=== PATIENT | male | born 1970 | race Caucasian/White ===

== ENCOUNTER 2019-07-15 07:55 | Outpatient (CLI) | payer OTHER, SELFPAY ==
--- NOTE | ~2019-07-15 | US_ITS ---
EXAMINATION: US scrotum doppler DATE: 07/15/2019 08:39 INDICATION: Hydrocele TECHNIQUE: Testicular sonogram utilizing grayscale and Doppler COMPARISON: None. FINDINGS: The right testis measures 3.8 x 3.3 x 3.0 cm. The left testis measures 4.2 x 3.3 x 2.6 cm. Symmetric normal grayscale appearance to both testes. There is normal vascular flow to both testes. The right e pididymis is normal with normal vascular flow. 1.9 x 1.2 x 1.2 cm anechoic cyst at the left epididymi s. The left epididymis is otherwise normal with normal vascular flow. Moderate-sized right hydrocele. There is no varicocele or left hydrocele. IMPRESSION: 1. Moderate right hydrocele. Reviewed, dictated and finalized at location A. PIECE ASSEMBLER
== END 2019-07-15 07:56 | disposition home or self-care (01) ==
PROVIDERS: PCP Family Medicine; Visit Provider Urology
DX: N43.3 Hydrocele, unspecified (principal)
CPT/HCPCS: 76870; 93976

== ENCOUNTER 2019-09-06 14:58 | Outpatient (CLI) | payer OTHER, SELFPAY ==
--- NOTE | 2019-09-06 15:16 | ECG_ITS ---
Measurements Intervals [place] Rate: 59 P: 33 DC: 183 QRS: 11 QRSD: 96 T: 5 QT: 433 QTc: 430 Interpretive Statements SINUS BRADYCARDIA ST ELEVATION IN ANTEROLAT/LAT LEADS- PROBABLY EARLY REPOLARIZATION BORDERLINE ECG Electronically Signed On 09-06-2019 17:02:38 CDT by Franki Rodriguez D.O.
[2019-09-06 15:26] LABS: Blood Urea Nitrogen 14 mg/dL (9-20); Calcium 9.5 mg/dL (8.4-10.2); Carbon Dioxide 32 mmol/L (22-30); Chloride 101 mmol/L (98-107); Estimated Glomerular Filt Rate > 60; Glucose 112 mg/dL (75-110); Potassium 4.1 mmol/L (3.4-5.0); Sodium 137 mmol/L (137-145)
== END 2019-09-06 14:59 | disposition home or self-care (01) ==
PROVIDERS: PCP Family Medicine; Visit Provider Anesthesiology
DX: I10 Essential (primary) hypertension (principal); R94.31 Abnormal electrocardiogram [ECG] [EKG]
CPT/HCPCS: 36415; 80048; 93005

== ENCOUNTER 2022-01-05 00:47 | Day surgery (SDC) | payer OTHER, SELFPAY ==
[2021-12-17 14:06] VITALS: BMI 35.0
--- NOTE | 2022-01-02 09:57 | SUR.PREOP ---
0957 spoke with the patient and patient is taking Sutab.
[2022-01-05 07:46] VITALS: BMI 35.4
[2022-01-05 07:49] VITALS: BP 139/78; PULSE 59; RESP 19; TEMP 35.9; O2SAT 99
[2022-01-05] MEDS: LACTATED RINGERS 1,000 ML 150 ML IV CONT (08:00)
--- NOTE | 2022-01-05 08:44 | PM.HPGS ---
History of Present Illness History of Present Illness Consent: Risks, benefits, and alternatives have been discussed and questions answered. Patient agrees to proceed with procedure. Chief complaint: neoplasm screening Narrative: Robin Rosales is a 51 year old male here for first screening colonoscopy Review of Systems Constitutional: Constitutional: Denies headache(s) and Denies weakness Eyes: Eyes: Denies blurry vision ENT: Reports Normal hearing present, Denies headache(s) and Denies neck pain Cardiovascular: Cardiovascular: Denies chest pain and Denies dyspnea Respiratory: Respiratory: Denies dyspnea Gastrointestinal: Gastrointestinal: Reports no additional gastrointestinal complaints Genitourinary: Genitourinary: Denies dysuria Musculoskeletal: Musculoskeletal: Denies neck pain Integumentary/Breasts: Skin/Breast: Denies dry skin Neurologic: Reports Normal hearing present, Denies headache(s) and Denies weakness Psychiatric: Psychiatric: Denies anxiety Endocrine: Endocrine: Denies change in body appearance Hematologic/Lymphatic: Hematologic/Lymphatic: Denies easy bleeding Allergic/Immunologic: Allergic/Immunologic: Denies urticaria PMF Past Medical History Medical History (Updated 01/05/22 @ 08:45 by Vasquez Bustos MD) Colon cancer screening Hyperlipidemia, acquired Hypertension Rectal mass Surgical History Surgical History S/P repair of hydrocele Family History Family History Mother Family history of malignant neoplasm of breast in first degree relative, Onset Age: 72 Father Family history of heart disease in male family member before age 55, Onset Age: 52 Other Hypertension Social History Social History Smoking packs per day: 1 Smoking cigarettes per day: 20.0 Years smoked: 4 Smoking pack-years: 4.00 Smoking status: Never smoker Alcohol intake: current Drinks per week: 12 Substance use: never Substance use type: does not use Living arrangements: with family Spiritual care concerns: No Meds Home Medications and Allergies Home Medications Medication Instructions Recorded Confirmed Type aspirin 81 mg tablet,delayed 81 mg PO DAILY 05/10/19 12/17/21 History release sildenafil 100 mg tablet (Viagra) 100 mg PO DAILY PRN sexual 04/19/20 12/17/21 Rx activity #30 tabs diclofenac sodium 1 % topical gel 2 g topical BID PRN pain #100 grams 04/18/21 12/17/21 Rx (Voltaren Arthritis Pain) ibuprofen 200 mg tablet 400 mg PO DAILY PRN Pain 04/18/21 12/17/21 History sodium sul 1.479 gram-potas ch See Rx Instructions PO .COMPLEX 11/07/21 12/17/21 Rx 0.188 gram-magnes sul 0.225 gram #24 tabs tablet (Sutab) bisoprolol 10 1 tablet PO DAILY #90 tabs 12/04/21 12/17/21 Rx mg-hydrochlorothiazide 6.25 mg tablet lovastatin 10 mg tablet 10 mg PO DAILY #90 tabs 12/04/21 12/17/21 Rx Allergies Allergy/AdvReac Type Severity Reaction Status Date / Time codeine Allergy Unknown CAUSES RASH Verified 10/24/21 08:09 Vital Signs Vital Signs - 24 hr 01/05/22 07:49 Temperature 96.7 F L Pulse Rate 59 L Respiratory Rate 19 Blood Pressure 139/78 Pulse Oximetry 99 Oxygen Delivery Room Air Exam Const: General: comfortable and no acute distress HENMT: General nose exam: Normal nares present Eyes: General: appearance normal, both eyes and all related structures Neck: Neck: no JVD Resp: Auscultation: clear to auscultation bilaterally Cardio: Rate: regular rate Rhythm: regular rhythm GI: Inspection: non-distended GI Palp: Yes Soft to palpation Skin: General skin exam: normal color Neuro: General: gait normal Speech: normal speech Extrem: General: normal to inspection Psych: Mental Status: mental status grossly normal Assessment and
--- NOTE | 2022-01-05 08:45 | WPDANESEPPF ---
Anes - Initial Pre Proc Eval Procedure: Operation Date: 01/05/22 09:00 Proposed Procedures p Screening Colonoscopy - Vasquez Bustos MD Date/Time: 01/05/22 08:45 Surgeon: Vasquez Bustos MD Pre Op Diagnosis: neoplasm screening Patient Data Age: 51 Gender: M Height: 1.8 m Weight: 115.2 kg Last Vital Signs Temp 96.7 F L 01/05/22 07:49 Pulse 59 L 01/05/22 07:49 Resp 19 01/05/22 07:49 BP 139/78 01/05/22 07:49 Pulse Ox 99 01/05/22 07:49 O2 Del Method Room Air 01/05/22 07:49 Allergies Allergy/AdvReac Type Severity Reaction Status Date / Time codeine Allergy Unknown CAUSES RASH Verified 10/24/21 08:09 Home Medications Medication Instructions Recorded Confirmed Type aspirin 81 mg tablet,delayed 81 mg PO DAILY 05/10/19 12/17/21 History release sildenafil 100 mg tablet (Viagra) 100 mg PO DAILY PRN sexual 04/19/20 12/17/21 Rx activity #30 tabs diclofenac sodium 1 % topical gel 2 g topical BID PRN pain #100 grams 04/18/21 12/17/21 Rx (Voltaren Arthritis Pain) ibuprofen 200 mg tablet 400 mg PO DAILY PRN Pain 04/18/21 12/17/21 History sodium sul 1.479 gram-potas ch See Rx Instructions PO .COMPLEX 11/07/21 12/17/21 Rx 0.188 gram-magnes sul 0.225 gram #24 tabs tablet (Sutab) bisoprolol 10 1 tablet PO DAILY #90 tabs 12/04/21 12/17/21 Rx mg-hydrochlorothiazide 6.25 mg tablet lovastatin 10 mg tablet 10 mg PO DAILY #90 tabs 12/04/21 12/17/21 Rx Patient hx anesthesia problems: none Family hx anesthesia problems: none Results Review: All pre-operative results and documents have been reviewed as part of the pre-operative evaluation. [facility] Past Medical History Medical History (Updated 01/05/22 @ 08:45 by Vasquez Bustos MD) Colon cancer screening Hyperlipidemia, acquired Hypertension Rectal mass Surgical History Surgical History S/P repair of hydrocele Family History Family History Mother Family history of malignant neoplasm of breast in first degree relative, Onset Age: 72 Father Family history of heart disease in male family member before age 55, Onset Age: 52 Other Hypertension Social History Social History Smoking packs per day: 1 Smoking cigarettes per day: 20.0 Years smoked: 4 Smoking pack-years: 4.00 Smoking status: Never smoker Alcohol intake: current Drinks per week: 12 Substance use: never Substance use type: does not use Living arrangements: with family Spiritual care concerns: No Anes - Eval Final PreProcedure Day of Procedure 01/05/22 08:45 Patient weight: obese Heart: regular rate and rhythm Lungs: clear to auscultation Airway: Mallampati scale class II Neurological: alert and oriented Last oral intake: >/= 8 hours ASA classification: II Emergent: no Anesthetic plan: proceed Anesthesia type and monitoring: general GIVS and standard monitoring Results Review: All pre-operative results and documents have been reviewed as part of the pre-operative evaluation. Informed Consent: The patient's anesthetic plan and its attendant risks and benefits were discussed with the patient/family/POA. Questions were solicited and answers provided to the satisfaction of the patient/family/POA.
[2022-01-05 09:09] VITALS: BP 100/58; PULSE 60; RESP 20; O2SAT 99
[2022-01-05 09:19] VITALS: BP 121/82; PULSE 60; RESP 20; O2SAT 97
[2022-01-05 09:29] VITALS: BP 128/80; PULSE 51; RESP 20; O2SAT 98
== END 2022-01-05 09:45 | disposition home or self-care (01) ==
PROVIDERS: PCP Family Medicine; Visit Provider Internal Medicine Gastroenterology
PROC: 0DJD8ZZ Inspection of Lower Intestinal Tract, Via Natural or Artificial Opening Endoscopic (ICD-10-PCS; CPT 45378; principal; 2022-01-05 09:00)
DX: Z12.11 Encounter for screening for malignant neoplasm of colon (principal); K57.30 Diverticulosis of large intestine without perforation or abscess without bleeding; K64.8 Other hemorrhoids; K62.89 Other specified diseases of anus and rectum; Z79.82 Long term (current) use of aspirin; E78.5 Hyperlipidemia, unspecified; I10 Essential (primary) hypertension; E66.9 Obesity, unspecified; Z68.35 Body mass index [BMI] 35.0-35.9, adult
CPT/HCPCS: 45378; J2704; J7120

== ENCOUNTER 2023-11-19 08:32 | Outpatient (CLI) | payer OTHER, SELFPAY ==
[2023-11-19 13:22] LABS: Hemoglobin 14.4 g/dL (14.0-18.0); Mean Corpuscular HGB Conc 32.7 g/dl (32-36); Mean Corpuscular Hemoglobin 28.8 pg (26-34); Mean Platelet Volume 10.9 fl (7.4-10.4); Platelet Count Result 273 k/mm3 (150-375); Red Cell Distribution Width 13.5 % (11.5-14.5); White Blood Count 6.4 K/mm3 (4.5-10.0)
[2023-11-19 13:31] LABS: Alanine Aminotransferase 16 U/L (6-50); Albumin Level 4.9 g/dL (3.5-5.1); Alkaline Phosphatase 59 U/L (38-126); Anion Gap 11 mmol/L (4-12); Aspartate Amino Transferase 40 U/L (17-59); Bilirubin,Total 1.3 mg/dL (0.2-1.3); Blood Urea Nitrogen 18 mg/dL (9-20); Calcium 9.3 mg/dL (8.4-10.2); Carbon Dioxide 28 mmol/L (22-30); Chloride 101 mmol/L (98-107); Cholesterol 189 mg/dL (0-200); Estimated Glomerular Filt Rate > 60; Glucose 94 mg/dL (65-110); HDL Direct 47 mg/dL; Potassium 4.2 mmol/L (3.4-5.0); Sodium 140 mmol/L (137-145); Triglycerides 175 mg/dL (<150)
[2023-11-19 13:42] LABS: LDL Cholesterol Direct 109 mg/dL
[2023-11-19 14:36] LABS: Free T4 Free Thyroxine 0.79 ng/mL (0.78-2.19)
[2023-11-19 14:37] LABS: Hemoglobin A1C 5.3 % (<5.7)
[2023-11-21 03:29] LABS: Triiodothyronine T3 Free 2.9 pg/mL (2.3-4.2)
== END 2023-11-19 08:33 | disposition home or self-care (01) ==
LOC: ANHGOSHLAB 08:33
PROVIDERS: Nurse Practitioner Family; PCP Family Medicine; Visit Provider Nurse Practitioner Family
DX: Z00.00 Encounter for general adult medical examination without abnormal findings (principal); E55.9 Vitamin D deficiency, unspecified; E78.5 Hyperlipidemia, unspecified; I10 Essential (primary) hypertension; M25.50 Pain in unspecified joint; N40.1 Benign prostatic hyperplasia with lower urinary tract symptoms; N52.9 Male erectile dysfunction, unspecified; R35.1 Nocturia; R79.89 Other specified abnormal findings of blood chemistry; R73.03 Prediabetes; E53.8 Deficiency of other specified B group vitamins; Z12.5 Encounter for screening for malignant neoplasm of prostate; Z13.29 Encounter for screening for other suspected endocrine disorder
CPT/HCPCS: 36415; 80053; 80061; 82607; 83036; 84153; 84439; 84443; 84481; 85027; G0103

== ENCOUNTER 2024-05-30 09:32 | Outpatient (CLI) | payer OTHER, SELFPAY ==
[2024-05-30 14:29] LABS: Basophils Absolute Auto 0.1 K/mm3 (0.0-0.1); Basophils Percent Auto 1.4 % (0.2-1.2); Eosinophils Absolute Auto 0.2 K/mm3 (0-0.3); Eosinophils Percent Auto 3.3 % (0-4.4); Hematocrit 44.4 % (42.0-52.0); Hemoglobin 14.9 g/dL (14.0-18.0); Immature Granulocyte Absolute 0.02 K/mm3 (0.00-0.031); Immature Granulocyte Percent A 0.3 % (0-0.5); Lymphocytes Absolute Auto 1.85 K/mm3 (0.9-3.2); Lymphocytes Percent Auto 26.7 % (18.3-44.2); Mean Corpuscular HGB Conc 33.6 g/dl (32-36); Mean Corpuscular Hemoglobin 30.3 pg (26-34); Mean Corpuscular Volume 90.4 fl (80-100); Mean Platelet Volume 10.4 fl (7.4-10.4); Monocytes Absolute Auto 0.9 K/mm3 (0.1-0.6); Monocytes Percent Auto 12.4 % (2.6-8.5); Neutrophils Absolute Auto 3.9 K/mm3 (1.3-6.7); Neutrophils Percent Auto 55.9 % (45.5-73.1); Platelet Count Result 251 k/mm3 (150-375); Red Blood Count 4.91 M/mm3 (4.6-6.20); Red Cell Distribution Width 13.3 % (11.5-14.5); White Blood Count 6.9 K/mm3 (4.5-10.0)
[2024-05-30 14:34] LABS: Alanine Aminotransferase 35 U/L (6-50); Albumin Level 4.5 g/dL (3.5-5.1); Alkaline Phosphatase 57 U/L (38-126); Anion Gap 3 mmol/L (4-12); Aspartate Amino Transferase 41 U/L (17-59); Bilirubin,Total 0.8 mg/dL (0.2-1.3); Blood Urea Nitrogen 17 mg/dL (9-20); Calcium 9.5 mg/dL (8.4-10.2); Carbon Dioxide 31 mmol/L (22-30); Chloride 104 mmol/L (98-107); Cholesterol 211 mg/dL (0-200); Estimated Glomerular Filt Rate > 60; Glucose 99 mg/dL (65-110); HDL Direct 55 mg/dL; Potassium 4.7 mmol/L (3.4-5.0); Sodium 138 mmol/L (137-145); Triglycerides 199 mg/dL (<150)
[2024-05-30 14:46] LABS: LDL Cholesterol Direct 112 mg/dL
[2024-05-30 14:59] LABS: Vitamin D 25 Hydroxy 28.2 ng/mL
[2024-05-30 15:37] LABS: Free T4 Free Thyroxine Reflex 0.75 ng/dL (0.78-2.19)
--- OUTSIDE RECORDS SUMMARY | 2024-06-06 16:45 | XMS_ITS | Encounter Summary ---
Author Organization [facility] Address [address] [place] [address] Care Team Providers Care Dominatrix Name Role Phone Lacie Arredondo MD Primary Care Provider [phone] Reason for Visit * Reason Onset Date Comments Medication Issue 01/05/2020 Encounter Details Date Type Department Care Team (Late st Contact Info) Description 01/05/2020 Telephone [facility] [address] [id number] Lacie Arredondo MD [address] [place] [phone] Medication Issue Social History Tobacco Use Types Packs/Day Years Used Date Smoking Tobacco: Never Smokeless Tobacco: Never Alcohol Use Standard Drinks/Week Comments Yes 0 (1 standard drink = 0.6 oz pur e alcohol) Sex and Gender Information Value Date Recorded Sex Assigned at Not on file Gender Identity Not on file Sexual Orientation Not on file COVID-19 Exposure Response Date Recorded In the last month, have you been in contact with someone who was confirmed or suspected to have Coronavirus / COVID-19? No / Unsure 01/05/2020 10:36 AM CDT documented as of this encounter Miscellaneous Notes * Telephone Encounter - Yoel Reardon APRN-CNP - 01/05/2020 3:21 PM CDT Patient states that he went ahead and got the RX. He states that his pharmacy wasn't a preferred pharmacy so it was more expensive, but he went ahead and got it * Telephone Encounter - Linnea Galvan - 01/05/2020 1:21 PM CDT Who is calling? Self What is the reason for call? Robin who was seen today at the [facility] date 01/05/2020. Patient would like a medication that fits his insurance. patient was seen for lear pain earlier today Expected Response from the Clinic? Please call Robin at : [phone] documented in this encounter Plan of Treatment Not on file documented as of this encounter Visit Diagnoses Not on filedocumented in this encounter Care Teams Dominatrix Relationship Specialty Start Date End Date Lacie Arredondo MD PCP - General Family Medicine 05/13/16 documented as of this encounter
--- OUTSIDE RECORDS SUMMARY | 2024-06-06 16:45 | XMS_ITS | Patient Health Summary ---
Author Organization [facility] Address [address] [place] [address] Care Team Providers Care Forest Patrolman Name Role Phone Lacie Arredondo MD Primary Care Provider [phone] [facility] from [facility],non-owned Affiliates and Associated Physician Practices is amultiple site organization consisting of ambulatory clinics and hospital sitesin [place], [place], [place] and [place]. This disclosure is being madepursuant to the Care Everywhere program and may not contain all information available regarding this patient. Last updated 18.[facility] Allergies * Codeine(Other) Medications * Be aware that medications may not be up to date on this document. Alwaysverify current medications with the patient. * BISOPROLOL FUMARATE PO * LOVASTATIN PO Immunizations * FLU VACCINE QUAD IIV4 PF ID(Given 05/13/2016) * INFLUENZA VACCINE, HIGH-DOSE, QUADR. (FLUZONE HIGH-DOSE QUADRIVALENT; 65Y+), 0.7 ML (HD-IIV4)(Given 02/09/2020) * INFLUENZA VACCINE, QUADR. (FLUZONE; FLULAVAL; FLUARIX; AFLURIA QUADRIVALENT; 6MO+), 0.5 ML (IIV4)(Given 04/22/2017) Social History Tobacco Use Types Packs/Day Years Used Date Smoking Tobacco: Never Smokeless Tobacco: Never Alcohol Use Standard Drinks/Week Comments Yes 0 (1 standard drink = 0.6 oz pur e alcohol) Sex and Gender Information Value Date Recorded Sex Assigned at Not on file Gender Identity Not on file Sexual Orientation Not on file Last Filed Vital Signs Vital Sign Reading Time Taken Comments Blood Pressure 126/82 01/05/2020 10:49 AM CDT Pulse 89 01/05/2020 10:49 AM CDT Temperature 36.7 ??C (98 ??F) 01/05/2020 10:49 AM CDT Respiratory Rate 16 01/05/2020 10:49 AM CDT Oxygen Saturation 97% 01/05/2020 10:49 AM CDT Inhaled Oxygen Concentration - - Weight 108.9 kg (240 lb) 01/05/2020 10:49 AM CDT Height 182.9 cm (6') 01/05/2020 10:49 AM CDT Body Mass Index 32.55 01/05/2020 10:49 AM CDT Care Teams Forest Patrolman Relationship Specialty Start Date End Date Lacie Arredondo MD PCP - General Family Medicine 05/13/16
--- OUTSIDE RECORDS SUMMARY | 2024-06-06 16:45 | XMS_ITS | Encounter Summary ---
Author Organization [facility] Address [facility] [place] [address] Care Team Providers Care Cloth Finisher Name Role Phone Lacie Arredondo MD Primary Care Provider [phone] Reason for Visit * Reason Comments Imm Inj Encounter Details Date Type Department Care Team (Late st Contact Info) Description 02/09/2020 12:40 PM CDT Office Visit [facility] AT [address] [phone] Provider, [facility] Need for influenza vaccination (Primary Dx) Social History Tobacco Use Types Packs/Day Years [...] have Coronavirus / COVID-19? No / Unsure 02/09/2020 12:31 PM CDT documented as of this encounter Progress Notes * Steph Espinoza - 02/09/2020 12:33 PM CDT Robin Rosales is a .49 year old .male patient, here for: Chief Complaint Patient presents with ??? Imm Inj No orders of the defined types were placed in this encounter. Patient tolerated without difficulty. Hemostasis achieved, and sterile band-aid placed. Immunization questionnaire scanned into the medical record. -Advised patient to keep a record of all vaccinations. (may use [facility] MyChart if desired) -May take Tylenol (acetaminophen) as needed for aches/pains per package directions. -If you develop redness, swelling at the injection site; it should resolve on its own within 5-7 days of injection. Use warm compresses as needed to the site. -Return to clinic for an evaluation if needed. -Current CDC VIS Handout given Follow-up with your Lacie Arredondo MD as directed. If no PCP listed, referral offered. .Steph Espinoza 02/09/2020 12:33 PM documented in this encounter Plan of Treatment Not on file documented as of this encounter Visit Diagnoses Diagnosis Need for influenza vaccination- Primary Need for prophylactic vaccination and inoculation against influenza documented in this encounter Care Teams Cloth Finisher Relationship Specialty Start Date End Date Lacie Arredondo MD PCP - General Family Medicine 05/13/16 documented as of this encounter
--- OUTSIDE RECORDS SUMMARY | 2024-06-06 16:45 | XMS_ITS | Encounter Summary ---
Author Organization [facility] Address [facility] [place] [address] Care Team Providers Care Vending Machine Collector Name Role Phone Lacie Arredondo MD Primary Care Provider [phone] Encounter Details Date Type Department Care Team (Latest Contact Info) Description 02/09/2020 Travel Social History Tobacco Use Types Packs/Day Years [...] PM CDT documented as of this encounter Plan of Treatment Not on file documented as of this encounter Visit Diagnoses Not on filedocumented in this encounter Care Teams Vending Machine Collector Relationship Specialty Start Date End Date Lacie Arredondo MD PCP - General Family Medicine 05/13/16 documented as of this encounter
--- OUTSIDE RECORDS SUMMARY | 2024-06-06 16:45 | XMS_ITS | Encounter Summary ---
Author Organization [facility] Address [facility] [place] [address] Care Team Providers Care Frozen Food Selector Name Role Phone Lacie Arredondo MD Primary Care Provider [phone] Encounter Details Date Type Department Care Team (Latest Contact Info) Description 01/05/2020 Travel Social History Tobacco Use Types Packs/Day [...] AM CDT documented as of this encounter Plan of Treatment Not on file documented as of this encounter Visit Diagnoses Not on filedocumented in this encounter Care Teams Frozen Food Selector Relationship Specialty Start Date End Date Lacie Arredondo MD PCP - General Family Medicine 05/13/16 documented as of this encounter
--- OUTSIDE RECORDS SUMMARY | 2024-06-06 16:45 | XMS_ITS | Referral Summary ---
Author Organization [facility] Address [address] [place] [address] Care Team Providers Care Balance Wheel Screw Hole Tapper Name Role Phone Lacie Arredondo MD Primary Care Provider [phone] Source Comments [facility],non-owned Affiliates and Associated Physician Practices is amultiple site organization consisting of ambulatory clinics and hospital sitesin [place], [place], [place] and [place]. This disclosure is being madepursuant to the Care Everywhere program and may not contain all information available regarding this patient. Last updated 18.[facility] [place] Allergies Active Allergy Reactions Criticality Noted Date Comments Codeine Other 09/29/2019 Intolerance Medications * Be aware that medications may not be up to date on this document. Alwaysverify current medications with the patient. Medication Sig Dispensed Refills Start Date End Date Status BISOPROLOL FUMARATE PO Ac tive LOVASTATIN PO Active Immunizations Name Administration Dates Next Due FLU VACCINE QUAD IIV4 PF ID 05/13/2016 INFLUENZA VACCINE, HIGH-DOSE , QUADR. (FLUZONE HIGH-DOSE QUADRIVALENT; 65Y+), 0.7 ML (HD-IIV4) 02/09/2020 INFLUENZA VACCINE, QUADR. (F LUZONE; FLULAVAL; FLUARIX; AFLURIA QUADRIVALENT; 6MO+), 0.5 ML (IIV4) 04/22/2017 Social History Tobacco Use Types Packs/Day Years [...] Mass Index 32.55 01/05/2020 10:49 AM CDT Plan of Treatment Not on file Care Teams Balance Wheel Screw Hole Tapper Relationship Specialty Start Date End Date Lacie Arredondo MD PCP - General Family Medicine 05/13/16
--- OUTSIDE RECORDS SUMMARY | 2024-06-06 16:45 | XMS_ITS | Clinical Summary ---
Author Organization [facility] Address [address] [place] [address] Care Team Providers Care Alteration Worker Name Role Phone Lacie Arredondo MD Primary Care Provider [phone] Source Comments [facility],non-owned Affiliates and Associated Physician Practices is amultiple site organization consisting of ambulatory clinics and hospital sitesin [place], [place], [place] and [place]. This disclosure is being madepursuant to the Care Everywhere program and may not contain all information available regarding this patient. Last updated 18.[facility] Allergies Active Allergy Reactions Criticality Noted Date [...] 01/05/2020 10:49 AM CDT Plan of Treatment Health Maintenance Due Date Last Done Comments COLOGUARD (AGES 45-75) - COL ON CA SCREENING 1972 COLON MONITORING 1972 COLONOSCOPY - COLON CA SCREENING 1972 CT COLONOGRAPHY - COLON CA SCREENING 1972 Colorectal Cancer Screening 1972 FIT - COLON CA SCREENING 1972 FLEX SIG - COLON CA SCREENING 1972 HIV SCREENING 02/16/1987 HEPATITIS C SCREENING 02/12/1990 DTAP/TDAP/TD VACCINES (1 - Tdap) 02/16/1991 HEPATITIS B VACCINE (1 of 3 - 19+ 3-dose series) 02/16/1991 SCREENING FOR DIABETES 09/29/2019 ZOSTER VACCINE (1 of 2) 02/16/2022 DEPRESSION SCREENING 06/07/2023 COVID-19 VACCINE (1 - 2023-2 5 season) 2024 INFLUENZA VACCINE (#1) 2024 0, 04/22/2017, 05/13/2016 HIB VACCINE Aged Out No longer eligi ble based on patient's age to complete this topic HPV VACCINE Aged Out No longer eligi ble based on patient's age to complete this topic MENINGOCOCCAL VACCINE Aged Out No gisele jaky eligible based on patient's age to complete this topic PNEUMOCOCCAL VACCINE Aged Out No long er eligible based on patient's age to complete this topic Care Teams Alteration Worker Relationship Specialty Start Date End Date Lacie Arredondo MD PCP - General Family Medicine 05/13/16
--- OUTSIDE RECORDS SUMMARY | 2024-06-06 16:46 | XMS_ITS | Encounter Summary ---
Author Organization [facility] Address [address] [place] [address] Phone Care Team Providers Care Title Curator Name Role Phone Harjinder Goff MD Primary Care Provider Reason for Visit * Reason Comments Pain Encounter Details Date Type Department Care Team (Late st Contact Info) Description 09/18/2020 9:00 AM CDT Office Visit [facility] Orthopaedic Surgery [address] [facility] 6th [place] [address] [place] [address] Bulmaro Govea MD [address] [facility] [place] [address] Right wrist pain (Primary Dx) Social History Tobacco Use Types Packs/Day Years Used Date Smoking Tobacco: Former Cigarettes 0.5 2.5 0 12/1993 - 1996 Smokeless Tobacco: Never Sex and Gender Information Value Date Recorded Sex Assigned at Not on file 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 Gender Identity Not on file Sexual Orientation Not on file 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 on file Not on file documented as of this encounter Last Filed Vital Signs Vital Sign Reading Time Taken Comments Blood Pressure - - Pulse - - Temperature - - Respiratory Rate - - Oxygen Saturation - - Inhaled Oxygen Concentration - - Weight 115.7 kg (255 lb) 09/18/2020 1:32 PM CDT Height 180.3 cm (5' 11 ) 09/18/2020 1:32 PM CDT Body Mass Index 35.57 09/18/2020 1:32 PM CDT documented in this encounter Ordered Prescriptions Prescription Sig Dispense Quantity Refills Last Filled Start Date End Date meloxicam (MOBIC) 15 mg tablet Take 1 tablet (15 mg total) by mouth daily 30 tablet 09/18/2020 10/18/2020 documented in this encounter Progress Notes * Bulmaro Govea MD - 09/18/2020 9:00 AM CDT CHIEF COMPLAINT Right wrist pain HISTORY OF PRESENT ILLNESS 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 He comes in with some spontaneous right wrist pain that started in May. Hurts around the ulnar aspect. No specific trauma. He says maybe 10 years ago though he did have a fall on ice and wastold he hurts some cartilage in the wrist. However it has not been hurting him constantly. No numbness or tingling. He does use a brace intermittently. He takes some ibuprofen 400 mg once or twice a day. Wanted to see what else we may be able to do to help him. The pain is a little bit inconsistentthough because he did feel well yesterday and was able to throw a baseball. PAST MEDICAL HISTORY He has a past medical history of Hypercholesteremia and Hypertension. PAST SURGICAL HISTORY He has a past surgical history that includes Knee surgery. INITIAL REVIEW OF MEDICATIONS He has a current medication list which includes the following prescription(s): bisoprolol-hydrochlorothiazide, hydrocodone-acetaminophen, lovastatin, and meloxicam. DRUG ALLERGIES He is allergic to codeine. SOCIAL HISTORY He reports that he quit smoking about 24 years ago. His smoking use included cigarettes. He has a 1.25 pack-year smoking history. He has never used smokeless tobacco. He reports that he does not use drugs. FAMILY HISTORY His family history includes Cancer in his mother; Heart disease in his father. REVIEW OF SYSTEMS Review of Systems All other systems reviewed and are negative. PHYSICAL EXAM The patient was alert and oriented normally. Normal affect. Skin is intact, pulses normal, and neurologically intact. Today on the right wrist he has excellent range of motion. He seems to hurt with extension and a bit with pronation. Has a mildly positive synergy test. DRUJ and ECU are stable. He seems to have most tenderness some at the ECU around the ulnar fovea. The fovea maybe a little bit more tender. FLUOROSCOPY REPORT: Today I ordered, performed, and interpreted AP and lateral images of the right wrist. Ulnar neutralvariance. Normal carpal alignment. No signs of impaction. No arthritis at the DRUJ. ASSESSMENT AND PLAN: This patient has ulnar-sided wrist pain for the last 4 months. Unclear exactly what structure is causing the pain although it does seem to be pointing towards some chronic irritation of the TFCC although the ECU could also be involved. I am not sure if the injury years ago does have something to dowith this but things seem flared up. The fact that ibuprofen has helped and that he did not have a new trauma makes me think that mechanically we are good. We just need to get the inflammation to finally settle down enough to actually feel better consistently. I recommended continuing the brace butalso adding Mobic consistently for 1 month to see if I can get him to truly resolved this. After that if it continues to bother her more come back he is welcome to let me know and I will be happy to reassess. I explained that sometimes at that point we would consider a steroid injection in the wrist and potentially MRI of the wrist. Dr. Bulmaro Govea dictating with [employer]. Woodwinds Teacher variances may occur. Bulmaro Govea M.D. Traffic Control Operator Hand and Upper Extremity Surgery [facility] documented in this encounter Plan of Treatment Not on file documented as of this encounter Visit Diagnoses Diagnosis Right wrist pain- Primary Pain in joint, forearm documented in this encounter Historical Medications * This list may reflect changes made after this encounter. lovastatin (MEVACOR) 10 mg tablet Take 10 mg by mouth nightly HYDROcodone-aceta minophen (NORCO) 5-325 mg per tabletIndications :Pain Take 1 tablet by mouth every 6 (six) hours as needed bisoprolol-hydroC HLOROthiazide (ZIAC) 10-6.25 mg per tablet 09/13/2020 added in this encounter Care Teams Title Curator Relationship Specialty Start Date End Date Harjinder Goff MD PCP - General Family Practice 08/13/20 documented as of this encounter
--- OUTSIDE RECORDS SUMMARY | 2024-06-06 16:46 | XMS_ITS | Encounter Summary ---
Author Organization [facility] Address [address] [place] [address] Care Team Providers Care Tester Operator Helper Name Role Phone Harjinder Goff MD Primary Care Provider Reason for Referral * Diagnostic Imaging (Routine) - Closed Specialty Diagnoses / Procedures Referred By Kary rodas Referred To Contact Diagnoses Right wrist pain Procedures Injection Wrist Right Arthro Only Bulmaro Govea MD Phone: tel: fax: [address] [phone] Referral ID Status Reason Start Date Expiration Date Visits Re quested Visits Authorized [id number] Closed 11/27/2020 12/27/2021 1 1 Reason for Visit * Diagnostic Imaging (Routine) - Closed Specialty Diagnoses / Procedures Referred By Kary rodas Referred To Contact Diagnoses Right wrist pain Procedures Injection Wrist Right Arthro Only Bulmaro Govea MD Phone: tel: fax: [address] [phone] Referral ID Status Reason Start Date Expiration Date Visits Re quested Visits Authorized [id number] Closed 11/27/2020 12/27/2021 1 1 Encounter Details Date Type Department Care Team (Latest Contact Info) Description 12/27/2020 1:41 PM CDT Hospital Encounter [facility] [address] [place] [address] [place] [address] Bulmaro Govea MD [address] [facility] [address] [place] [address] Right wrist pain Discharge Disposition: Discharge to home or self care Social History Tobacco Use Types Packs/Day Years Used Date Smoking Tobacco: Former Cigarettes 0.5 2.5 0 12/1993 - 1996 Smokeless Tobacco: Never Sex and Gender Information Value Date Recorded Sex Assigned at Not on file 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 Gender Identity Not on file Sexual Orientation Not on file 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 on file Not on file documented as of this encounter Medications at Time of Discharge bisoprolol-hydroC HLOROthiazide (ZIAC) 10-6.25 mg per tablet 09/13/2020 HYDROcodone-aceta minophen (NORCO) 5-325 mg per tabletIndications :Pain Take 1 tablet by mouth every 6 (six) hours as needed lovastatin (MEVACOR) 10 mg tablet Take 10 mg by mouth nightly documented as of this encounter Discharge Disposition Disposition Code Departure Means Destination Discharge to home or self care documented in this encounter Plan of Treatment Not on file documented as of this encounter Procedures Procedure Name Priority Date/Time Associated Diagnosis Comments INJECTION WRIST RIGHT ARTHRO ONLY Schedule Routine, Read Routine (OP Routine) 12/27/2020 3:31 PM CDT Right wrist pain documented in this encounter Results * Injection Wrist Right Arthro Only (12/27/2020 3:31 PM CDT) Anatomical Region Laterality Modality Wrist Right Computed Radiogr aphy 12/27/2020 5:34 PM CDT Impressions 12/27/2020 5:37 PM CDT 1. ??Right wrist radiocarpal joint injection and right wrist arthrogram under fluoroscopic guidance prior to MR arthrography. No contrast is noted within the mid carpal row or the distal radioulnar joint. Dictated by: Flynn Guardado M.D. The radiology attending physician has personally reviewed this study, and had reviewed and/or edited this written report and agrees with it. Electronically signed by: Monty Golden M.D. Narrative 12/27/2020 5:37 PM CDT EXAMINATION: ?? 1. Right wrist joint injection and arthrogram 2. Fluoroscopic guidance for needle placement HISTORY: Persistent ulnar-sided right wrist pain, pre MR arthrogram TECHNIQUE: ??The risks, benefits and alternatives were discussed with the patient. ??Informed consent was obtained. ??Prior to beginning the procedure, Weston Protocol was performed to confirm the patient's identity and the planned procedure. ??The fluoroscopy time has been recorded in the electronic medical record. The patient was placed prone on the fluoroscopy table. ??The right wrist radiocarpal joint was localized with fluoroscopic guidance. Dynamic fluoroscopic examination of the right wrist was performed and demonstrated no dynamic instability. The skin was prepped and draped in a standard sterile fashion. ??Using sterile technique, a 10 mL solution was prepared consisting of 5 mL of a 1:100 dilution of Dotarem gadolinium contrast in sterile saline and 5 mL Conray 60. Local anesthesia was achieved with subcutaneous injection of 1% lidocaine 2 mL. ??A 22-gauge ??needle was then introduced into the dorsal radiocarpal joint under fluoroscopic guidance. The intra-articular position of the needle was confirmed with fluoroscopy. Subsequently, 2 mL of the 1:200 gadolinium contrast solution was injected with intermittent fluoroscopic visualization. The injection was performed by Dr. Flynn Guardado. ?? Complication: None Type: None The patient was then transferred to the MR suite for MR arthrogram. Dr. Monty Golden M.D., the attending radiologist, was present from the beginning to the end of the procedure. FINDINGS: Fluoroscopic images confirm intra-articular position of the needle tip with subsequent filling of the joint space. Postinjection right wrist fluoroscopic imaging revealed no dynamic instability. A dynamic fluoroscopic examination of the wrist was performed prior to contrast injection. Following contrast injection a repeat dynamic fluoroscopic examination was performed. Spot images were saved from both examinations. No extravasation of contrast was identified. The results of the MR arthrogram are reported separately. Procedure Note Monty Golden MD PhD - 12/27/2020 EXAMINATION: 1. Right wrist joint injection and arthrogram 2. Fluoroscopic guidance for needle placement HISTORY: Persistent ulnar-sided right wrist pain, pre MR arthrogram TECHNIQUE: The risks, benefits and alternatives were discussed with the patient. Informed consent was obtained. Prior to beginning the procedure, Weston Protocol was performed to confirm the patient's identity and the planned procedure. The fluoroscopy time has been recorded in the electronic medical record. The patient was placed prone on the fluoroscopy table. The right wrist radiocarpal joint was localized with fluoroscopic guidance. Dynamic fluoroscopic examination of the right wrist was performed and demonstrated no dynamic instability. The skin was prepped and draped in a standard sterile fashion. Using sterile technique, a 10 mL solution was prepared consisting of 5 mL of a 1:100 dilution of Dotarem gadolinium contrast in sterile saline and 5 mL Conray 60. Local anesthesia was achieved with subcutaneous injection of 1% lidocaine 2 mL. A 22-gauge needle was then introduced into the dorsal radiocarpal joint under fluoroscopic guidance. The intra-articular position of the needle was confirmed with fluoroscopy. Subsequently, 2 mL of the 1:200 gadolinium contrast solution was injected with intermittent fluoroscopic visualization. The injection was performed by Dr. Flynn Guardado. Complication: None Type: None The patient was then transferred to the MR suite for MR arthrogram. Dr. Monty Golden M.D., the attending radiologist, was present from the beginning to the end of the procedure. FINDINGS: Fluoroscopic images confirm intra-articular position of the needle tip with subsequent filling of the joint space. Postinjection right wrist fluoroscopic imaging revealed no dynamic instability. A dynamic fluoroscopic examination of the wrist was performed prior to contrast injection. Following contrast injection a repeat dynamic fluoroscopic examination was performed. Spot images were saved from both examinations. No extravasation of contrast was identified. The results of the MR arthrogram are reported separately. IMPRESSION: 1. Right wrist radiocarpal joint injection and right wrist arthrogram under fluoroscopic guidance prior to MR arthrography. No contrast is noted within the mid carpal row or the distal radioulnar joint. Dictated by: Flynn Guardado M.D. The radiology attending physician has personally reviewed this study, and had reviewed and/or edited this written report and agrees with it. Electronically signed by: Monty Golden M.D. Bulmaro Govea MD IMG XR PROCEDURES Final R esult documented in this encounter Visit Diagnoses Diagnosis Right wrist pain Pain in joint, forearm documented in this encounter Administered Medications Inactive Administered Medications - up to 3 most recent administrations Medication Order MAR Action Action Date Dose Rate Site iothalamate meglumine (CONRAY) 60 % injection 30 mL 30 mL, intra-articular, Once in imaging, contrast, Starting on Wed12/27/20 at 1531, For 1 dose, Pre-Op/Floor Contrast Given 12/27/2020 3:32 PM CDT 10 mL documented in this encounter Orders Medications Ordered That Alexis ht Not Have Been Administered Count Last Ordered Date First Ordered Date iothalamate meglumine (CONRA Y) 60 % injection 30 mL 1 12/27/2020 documented in this encounter Care Teams Tester Operator Helper Relationship Specialty Start Date End Date Harjinder Goff MD PCP - General Family Practice 08/13/20 documented as of this encounter
--- OUTSIDE RECORDS SUMMARY | 2024-06-06 16:46 | XMS_ITS | Encounter Summary ---
Author Organization [facility] Address [address] [place] [address] Phone Care Team Providers Care Grating Machine Operator Name Role Phone Harjinder Goff MD Primary Care Provider Reason for Visit * Reason Comments Follow-up Encounter Details Date Type Department Care Team (Late st Contact Info) Description 01/07/2021 8:00 AM CDT Office Visit [facility] Orthopaedic Surgery [address] [facility] 2nd [address] [place] [address] Bulmaro Govea MD [address] [facility] [place], [place] [id number] Right wrist pain (Primary Dx) Social History Tobacco Use Types Packs/Day Years Used Date Smoking Tobacco: Former Cigarettes 0.5 2.5 0 12/1993 - 1996 Smokeless Tobacco: Never Sex and Gender Information Value Date Recorded Sex Assigned at Not on file 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 At his last visit he received a right ECU tendon sheath corticosteroid injection. He reports that this injection did not significantly alleviate his pain. He reports that he had temporary relief for a few hours following the injection but his ulnar wrist pain recurred within 1-2 days. He is now experiencing daily, sharp pain over his ulnar wrist which is most severe with twisting motions of his wrist and pronation. He is taking 400 mg of ibuprofen twice daily which is providing him with significant pain relief. He is using a wrist brace both during the daytime and at nighttime. He has no other complaints today. PHYSICAL EXAM This is a well- developed, well nourished age appropriate patient in no acute distress. The patientis alert and oriented x3. On the right side, there is excellent elbow, forearm motion. There is 60?? of wrist extension of 45?? wrist flexion without pain There is no significant swelling There is no significant tenderness to palpation over the dorsal DRUJ, ECU tendon, or pisiform. There is mild/moderate tenderness to palpation over the ulnar fovea, mild/moderate pain with ulnar impaction There is no DRUJ instability There is no tenderness over the FCU tendon Negative synergy test DPC is zero for all digits. Median, radial, and ulnar nerves are intact to motor and sensory function. 2+ radial pulse and brisk capillary refill. No swelling noted. There is no atrophy and strength is satisfactory. IMAGING MR arthrogram of the right wrist performed on 12/27/2020 was personally reviewed by me and demonstrates some mild tendinopathy of the ECU tendon with some partial insertional tearing. There is no evidence of a TFCC tear. There is diffuse marrow edema in the lunate, triquetrum, and capitate head. There is neutral ulnar variance. There is no acute fracture. FLUOROSCOPY REPORT: Today I ordered, performed, and interpreted PA imaging of the right wrist confirming needle placement in the ulnar carpal joint. No obvious radiographic abnormality. ASSESSMENT AND PLAN Patient is a pleasant 50-year-old nlbpp-zpos-tihbfakp male who presents to clinic today for repeat evaluation of right ulnar wrist pain. He did not have significant relief of his symptoms following his right ECU tendon sheath corticosteroid injection. We discussed that his MR arthrogram did not demo nstrate any evidence of a TFCC tear. However, he does have diffuse midcarpal edema in his lunate, triquetrum, and capitate head without any evidence of erosive changes or advanced arthritis. He has alittle bit of foot pain that sounds like plantar fasciitis but no other generalized body joint problems. We discussed that his symptoms may be secondary to early midcarpal osteoarthritis which is notsignificant on his plain radiographs. We recommended proceeding with a diagnostic and therapeutic right ulnocarpal corticosteroid injection today to determine if this provides him with any relief. Werecommended continued use of his brace both during daytime activities and at night for pain relief.He may continue to take neig-psz-ytcfeos oral and topical anti-inflammatory medications for pain relief. We will plan for him to follow-up in 4 weeks for a repeat clinical assessment of his symptoms and his response to his ulnocarpal injection. Today we recommended a steroid injection. Risks of the injection were explained to include infection, flare reaction, skin depigmentation, dimpling, and possible tendon rupture or damage to cartilagewith repeated injections. With an alcohol and betadine preparation we injected 40 mg of Depo-medrol([facility] - [id number] , Lot#[id number])mixed with lidocaine, without difficulty into the right ulnar carpal joint through a 6R portal. I will see him back in 1 month. I was present for the critical portion of the history, physical examination and participated in theradiographic review and medical decision making on this patient. I agree with this report which wasgenerated with the assistance of Dr. Smith. documented in this encounter Plan of Treatment Not on file documented as of this encounter Visit Diagnoses Diagnosis Right wrist pain- Primary Pain in joint, forearm documented in this encounter Care Teams Grating Machine Operator Relationship Specialty Start Date End Date Harjinder Goff MD PCP - General Family Practice 08/13/20 documented as of this encounter
--- OUTSIDE RECORDS SUMMARY | 2024-06-06 16:46 | XMS_ITS | Encounter Summary ---
Author Organization [facility] Address [address] [place] [address] Care Team Providers Care Sample Grinder Name Role Phone Unavailable Primary Care Provider Unavailabl e Encounter Details Date Type Department Care Team (Late st Contact Info) Description 04/05/2024 External Device Data [facility] ABSTRACTION Provider, Abstract NO ADDRESS ON FILE Social History Tobacco Use Types Packs/Day Years Used Date Smoking Tobacco: Never Assessed Sex and Gender Information Value Date Recorded Sex Assigned at Not on file Gender Identity Not on file Sexual Orientation Not on file documented as of this encounter Plan of Treatment Not on file documented as of this encounter Visit Diagnoses Not on filedocumented in this encounter
--- OUTSIDE RECORDS SUMMARY | 2024-06-06 16:46 | XMS_ITS | Encounter Summary ---
Author Organization [facility] Address [address] [place] [address] Care Team Providers Care Venetian Blind Cleaner And Repairer Name Role Phone Unavailable Primary Care Provider Unavailabl e Reason for Visit * Reason Comments Medication Refill Encounter Details Date Type Department Care Team (Late st Contact Info) Description 12/04/2021 Refill [facility] [place] [address] [place] [address] Ramandeep Mckenzie, PATENTS EXAMINER [address] [place] [address] Social History Tobacco Use Types Packs/Day Years [...]
--- OUTSIDE RECORDS SUMMARY | 2024-06-06 16:46 | XMS_ITS | Encounter Summary ---
Author Organization [facility] Address [address] [place] [address] Care Team Providers Care Feather Shaper Name Role Phone Unavailable Primary Care Provider Unavailabl e Encounter Details Date Type Department Care Team (Late st Contact Info) Description 07/27/2023 External Device Data [facility] ABSTRACTION Provider, Abstract [...]
--- OUTSIDE RECORDS SUMMARY | 2024-06-06 16:46 | XMS_ITS | Encounter Summary ---
Author Organization [facility] Address [address] [place] [address] Care Team Providers Care Iron Miner Blasting Name Role Phone Lacie Arredondo MD Primary Care Provider [phone] Reason for Visit * Reason Comments Imm Inj Encounter Details Date Type Department Care Team (Late st Contact Info) Description 05/13/2016 9:40 AM ASSEMBLER CHASSIS Office Visit [facility] AT [address] [phone] Provider, [facility] Need for vaccination (Primary Dx) Social History Tobacco Use Types Packs/Day Years Used Date Smoking Tobacco: Never Assessed Sex and Gender Information Value Date Recorded Sex Assigned at Not on file Gender Identity Not on file Sexual Orientation Not on file documented as of this encounter Patient Instructions * Patient Instructions* Sana Pringle APRN-CNP - 05/13/2016 9:52 AM ASSEMBLER CHASSIS May apply ice or cold pack to injection site May take tylenol or ibuprofen per package directions for pain or fever. Follow up if needed with any questions or concerns. MBLER CHASSIS documented in this encounter Progress Notes * Sana Pringle APRN-CNP - 05/13/2016 9:52 AM CST Patient is here for flu vaccine. Vaccine counseling and consent completed. Patient tolerated vaccine administration well. May apply ice or cold pack to injection site May take tylenol or ibuprofen per package directions for pain or fever. Follow up if needed with any questions or concerns. MBLER CHASSIS documented in this encounter Plan of Treatment Not on file documented as of this encounter Visit Diagnoses Diagnosis Need for vaccination- Primary Need for prophylactic vaccination and inoculation against unspecified single disease documented in this encounter Care Teams Iron Miner Blasting Relationship Specialty Start Date End Date Lacie Arredondo MD PCP - General Family Medicine 05/13/16 documented as of this encounter
--- OUTSIDE RECORDS SUMMARY | 2024-06-06 16:46 | XMS_ITS | Encounter Summary ---
Author Organization [facility] Address [address] [place] [address] Phone Care Team Providers Care Manager Strategic Partnerships Name Role Phone Harjinder Goff MD Primary Care Provider Reason for Visit * Reason Comments Follow-up Encounter Details Date Type Department Care Team (Late st Contact Info) Description 02/05/2021 9:10 AM CDT Office Visit [facility] Orthopaedic Surgery [address] [place] [address] [place] [address] Bulmaro Govea MD [address] [facility] [address] [place] [address] Right wrist pain (Primary Dx) Social History Tobacco Use Types Packs/Day Years Used Date Smoking Tobacco: Former Cigarettes 0.5 2.5 0 12/1993 - 1996 Smokeless Tobacco: Never Sex and Gender Information Value Date Recorded Sex Assigned at Not on file 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 The injection I gave him in the ulnar carpal joint actually really helped his pain as opposed to the 1 in the ECU. He noticed substantial improvement in for a few weeks was nearly pain-free. Now he has had a bit of the pain come back but still a lot better than it was before. Using some ibuprofen intermittently. Using his splint at night. When he did a bunch of yd work over the weekend it seems like the pain did increase. PHYSICAL EXAM The patient was alert and oriented normally. Normal affect. Skin is intact, pulses normal, and neurologically intact. Today the right wrist again shows no sign of trauma. Very good range of motion. Most pain with wrist flexion. Just hurts over the central portion of the wrist nothing point tender. Still seems to point over the ECU as the location of some pain but no tenderness or instability there. No one other motion seems to cause more pain. ASSESSMENT AND PLAN This patient has had right wrist pain now that has improved with corticosteroid injection. His MRI suggested some scattered inflammation in the bones. 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 However he is having some bad foot pain as well. Just because it is a little bit unusual to see this type of atraumatic pain come on and persist in somebody in their 40s I think that getting some inflammatory blood work would be appropriate. We will check this and then give him a call with the results. If we did see something on that I would refer to rheumatology but if not we canjust use occasional NSAIDs and try to let him simply modify activities as needed. At this point I do not see a specific surgical intervention to perform. Dr. Bulmaro Govea dictating with Fluency Direct. Utility Gelatin Maker variances may occur. Bulmaro Govea M.D. Professor Hand and Upper Extremity Surgery [facility] Orthopedics documented in this encounter Plan of Treatment Not on file documented as of this encounter Visit Diagnoses Diagnosis Right wrist pain- Primary Pain in joint, forearm documented in this encounter Orders Lab Orders Without Results Count Last Ordered D ate First Ordered Date PATTIE QUALITATIVE WITH REFLEX TO PATTIE QUANTITATIVE 1 02/05/2021 C3 COMPLEMENT 1 02/05/2021 C4 COMPLEMENT 1 02/05/2021 CALCIUM LEVEL 1 02/05/2021 CBC WITH AUTO DIFFERENTIAL 1 02/05/2021 CRP (ACUTE PHASE) 1 02/05/2021 CYCLIC CITRUL PEPTIDE ANTIBODY, IGG 1 02/05 ERYTHROCYTE SEDIMENTATION RATE 1 02/05/2021 RHEUMATOID FACTOR 1 02/05/2021 URIC ACID 1 02/05/2021 documented in this encounter Care Teams Manager Strategic Partnerships Relationship Specialty Start Date End Date Harjinder Goff MD PCP - General Family Practice 08/13/20 documented as of this encounter
--- OUTSIDE RECORDS SUMMARY | 2024-06-06 16:46 | XMS_ITS | Referral Summary ---
Author Organization [facility] Address [address] [place] [address] Care Team Providers Care Embossing Calender Operator Name Role Phone Harjinder Goff MD Primary Care Provider Allergies Active Allergy Reactions Criticality Noted Date Comments Codeine Rash Medium 09/29/2019 Medications bisoprolol-hydr oCHLOROthiazide (ZIAC) 10-6.25 mg per tablet 09/13/2020 Activ e HYDROcodone-brent taminophen (NORCO) 5-325 mg per tabletIndicatio ns:Pain Take 1 tablet by mouth every 6 (six) hours as needed Active lovastatin (MEVACOR) 10 mg tablet Take 10 mg by mouth nightly Active Active Problems No known active problems Social History Tobacco Use Types Packs/Day Years Used Date Smoking Tobacco: Former Cigarettes 0.5 2.5 0 12/1993 - 1996 Smokeless Tobacco: Never Personal Safety Answer Date Recorded Getting School Help Needed Not on file 08/21 Sex and Gender Information Value Date Recorded Sex Assigned at Not on file Legal Sex Male 3:58 AM CERTIFIED PARALEGAL Gender Identity Not on file Sexual Orientation Not on file 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 on file Not on file Last Filed Vital Signs Vital Sign Reading Time Taken Comments Blood Pressure - - Pulse - - Temperature - - Respiratory Rate - - Oxygen Saturation - - Inhaled Oxygen Concentration - - Weight 115.7 kg (255 lb) 01/07/2021 7:53 AM CDT Height 180.3 cm (5' 11 ) 01/07/2021 7:53 AM CDT Body Mass Index 35.57 01/07/2021 7:53 AM CDT Plan of Treatment Not on file Insurance [facility] [employer] [facility] Care Teams Embossing Calender Operator Relationship Specialty Start Date End Date Harjinder Goff MD PCP - General Family Practice 08/13/20
--- OUTSIDE RECORDS SUMMARY | 2024-06-06 16:46 | XMS_ITS | Encounter Summary ---
Author Organization [facility] Address [address] [place] [address] Care Team Providers Care Dumper Name Role Phone Unavailable Primary Care Provider Unavailabl e Encounter Details Date Type Department Care Team (Late st Contact Info) Description 06/15/2023 External Device Data STL ABSTRACTION Provider, Abstract [...]
--- OUTSIDE RECORDS SUMMARY | 2024-06-06 16:46 | XMS_ITS | Encounter Summary ---
Author Organization [facility] Healthcare Address [address] [place] [address] Care Team Providers Care Maintenance And Custodian Supervisor Name Role Phone Harjinder Goff MD Primary Care Provider Encounter Details Date Type Department Care Team (Late st Contact Info) Description 12/26/2020 Telephone [facility] Radiology [address] [place] [address] Bulmaro Govea MD [address] [facility] [address] [address] Social History Tobacco Use Types Packs/Day Years Used Date Smoking Tobacco: Former Cigarettes 0.5 2.5 0 12/1993 - 1996 Smokeless Tobacco: Never Sex and Gender Information Value Date Recorded Sex Assigned at Not on file 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
--- OUTSIDE RECORDS SUMMARY | 2024-06-06 16:46 | XMS_ITS | Encounter Summary ---
Author Organization [facility] Healthcare Address [address] [place] [address] Care Team Providers Care Forest Aide Name Role Phone Harjinder Goff MD Primary Care Provider Reason for Referral * MRI/CAT/PET Scan (Routine) - Closed Specialty Diagnoses / Procedures Referred By Kary rodas Referred To Contact Radiology Diagnoses Right wrist pain Procedures MRI Wrist Arthrogram Right W Contrast Bulmaro Govea MD Phone: tel: fax: [address] [phone] Referral ID Status Reason Start Date Expiration Date Visits Re quested Visits Authorized [id number] Closed 12/12/2020 03/12/2021 1 1 Reason for Visit * MRI/CAT/PET Scan (Routine) - Closed Specialty Diagnoses / Procedures Referred By Kary rodas Referred To Contact Radiology Diagnoses Right wrist pain Procedures MRI Wrist Arthrogram Right W Contrast Bulmaro Govea MD Phone: tel: fax: [address] [phone] Referral ID Status Reason Start Date Expiration Date Visits Re quested Visits Authorized [id number] Closed 12/12/2020 03/12/2021 1 1 Encounter Details Date Type Department Care Team (Latest Contact Info) Description 12/27/2020 1:42 PM CDT - 12/27/2020 11:59 PM CDT Hospital Encounter [facility] Radiology [address] 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 I explained that I reviewed his MRI and then looking at everything structures appear to be intact. No ligament ruptures or cartilage tears. There does seem to be some tendinitis of the tendon that we did inject. There also seems to be some inflammation that is a bit nonspecific in the wrist probably related to a little bit of arthritis in a few of the bones. At this point I would probably go ahead and recommend an injection into the wrist joint itself. Wecould do this in the office. My hope is this would change the pain as my suspicion is that the inflammation is from a little bit of arthritis in the wrist. I left our office phone number for him to call to make that appointment. documented in this encounter Plan of Treatment Not on file documented as of this encounter Procedures Procedure Name Priority Date/Time Associated Diagnosis Comments MRI WRIST ARTHROGRAM RIGHT W CONTRAST Schedule Routine, Read Routine (OP Routine) 12/27/2020 4:05 PM CDT Right wrist pain documented in this encounter Results * MRI Wrist Arthrogram Right W Contrast (12/27/2020 4:05 PM CDT) Anatomical Region Laterality Modality Upper Extremities Right Magnetic Reson ance 12/27/2020 5:51 PM CDT Impressions 12/28/2020 4:55 PM CDT 1. ??Tendinopathy and tenosynovitis along the ulnar aspect of the wrist and involving the flexor carpi ulnaris and extensor carpi ulnaris ??with partial insertional tearing of the extensor carpi ulnaris tendon. 2. Moderate bone marrow edema involves the distal ulna, triquetrum, lunate, and capitate. This is nonspecific, but may be secondary to chondrosis or could represent marrow contusions related to recent trauma, although the edema pattern would be atypical. 3. Mild midcarpal chondrosis. 4. Intact triangular fibrocartilage without evidence of tear. Dictated by: Flynn Guardado M.D. The radiology attending physician has personally reviewed this study, and had reviewed and/or edited this written report and agrees with it. Electronically signed by: Monty Golden M.D. Narrative 12/28/2020 4:55 PM CDT EXAMINATION: 1. MRI Wrist Arthrogram Right W Contrast HISTORY: ??Ulnar sided right wrist pain TECHNIQUE: An MRI of the right wrist was performed following the fluoroscopic guided intra-articular injection of 2 mL of a ??1:200 dilution of Dotarem in sterile saline and Conray 60. ??Please see separate dictation for details of the procedure. MR examination of the right wrist was performed with a dedicated wrist coil. ??Coronal and short axis short TR/TE and fast spin echo images were obtained. ??Sagittal fast spin echo images were obtained. Additional thin section coronal 3D gradient echo images were obtained. FINDINGS: No prior right wrist imaging is available for comparison. There is moderate marrow edema involving the distal ulna, triquetrum, lunate, and capitate. There are possible old fractures of the hamate and triquetrum. The scapholunate and lunotriquetral ligaments are intact without contrast within the mid carpal joint. The triangular fibrocartilage is intact without evidence of tear. No contrast enters the distal radioulnar joint. Mild chondrosis involves the first carpometacarpal joint, triscaphe joint, and the midcarpal joints. There is tendinopathy and tenosynovitis involving extensor compartments 1. The extensor carpi ulnaris is tendinopathic with insertional edema and partial tearing at its insertion. There is extensor carpi ulnaris tenosynovitis. The flexor carpi ulnaris is tendinopathic at its attachment on the pisiform. There is flexor carpi ulnaris tenosynovitis. There is contrast along the volar aspect of the distal ulnar styloid. Ulnar sided subcutaneous soft tissue edema is present. The median and ulnar nerves demonstrate normal size and signal intensity. Procedure Note Monty Golden MD PhD - 12/28/2020 EXAMINATION: 1. MRI Wrist Arthrogram Right W Contrast HISTORY: Ulnar sided right wrist pain TECHNIQUE: An MRI of the right wrist was performed following the fluoroscopic guided intra-articular injection of 2 mL of a 1:200 dilution of Dotarem in sterile saline and Conray 60. Please see separate dictation for details of the procedure. MR examination of the right wrist was performed with a dedicated wrist coil. Coronal and short axis short TR/TE and fast spin echo images were obtained. Sagittal fast spin echo images were obtained. Additional thin section coronal 3D gradient echo images were obtained. FINDINGS: No prior right wrist imaging is available for comparison. There is moderate marrow edema involving the distal ulna, triquetrum, lunate, and capitate. There are possible old fractures of the hamate and triquetrum. The scapholunate and lunotriquetral ligaments are intact without contrast within the mid carpal joint. The triangular fibrocartilage is intact without evidence of tear. No contrast enters the distal radioulnar joint. Mild chondrosis involves the first carpometacarpal joint, triscaphe joint, and the midcarpal joints. There is tendinopathy and tenosynovitis involving extensor compartments 1. The extensor carpi ulnaris is tendinopathic with insertional edema and partial tearing at its insertion. There is extensor carpi ulnaris tenosynovitis. The flexor carpi ulnaris is tendinopathic at its attachment on the pisiform. There is flexor carpi ulnaris tenosynovitis. There is contrast along the volar aspect of the distal ulnar styloid. Ulnar sided subcutaneous soft tissue edema is present. The median and ulnar nerves demonstrate normal size and signal intensity. IMPRESSION: 1. Tendinopathy and tenosynovitis along the ulnar aspect of the wrist and involving the flexor carpi ulnaris and extensor carpi ulnaris with partial insertional tearing of the extensor carpi ulnaris tendon. 2. Moderate bone marrow edema involves the distal ulna, triquetrum, lunate, and capitate. This is nonspecific, but may be secondary to chondrosis or could represent marrow contusions related to recent trauma, although the edema pattern would be atypical. 3. Mild midcarpal chondrosis. 4. Intact triangular fibrocartilage without evidence of tear. Dictated by: Flynn Guardado M.D. The radiology attending physician has personally reviewed this study, and had reviewed and/or edited this written report and agrees with it. Electronically signed by: Monty Golden M.D. Bulmaro Govea MD IM MRI PROCEDURES Final Result documented in this encounter Visit Diagnoses Diagnosis Right wrist pain Pain in joint, forearm documented in this encounter Administered Medications Inactive Administered Medications - up to 3 most recent administrations Medication Order MAR Action Action Date Dose Rate Site gadoterate meglumine (DOTAREM) 0.5 mmol/mL injection 10 mL 10 mL, intravenous, Once in imaging, contrast, Starting on Wed12/27/20 at 1558, For 1 dose Contrast Given 12/27/2020 3:58 PM CDT 1 mL documented in this encounter Orders Medications Ordered That Alexis ht Not Have Been Administered Count Last Ordered Date First Ordered Date gadoterate meglumine (DOTARE M) 0.5 mmol/mL injection 10 mL 1 12/27/2020 documented in this encounter Care Teams Forest Aide Relationship Specialty Start Date End Date Harjinder Goff MD PCP - General Family Practice 08/13/20 documented as of this encounter
--- OUTSIDE RECORDS SUMMARY | 2024-06-06 16:46 | XMS_ITS | Clinical Summary ---
Author Organization [facility] Address [address] Attn: Epic Prelude ADT MALATHI CERRATO [address] Care Team Providers Care Golf Course Designer Name Role Phone Unavailable Primary Care Provider Unavailabl e Medications Medication Sig Dispensed Refills Start Date End Date Status bisoprolol-hydr oCHLOROthiazide (ZIAC) 10-6.25 mg tablet Take 1 Tablet by mouth daily. 90 Tablet 1 12/04/2021 Active calcipotriene (DOVONEX) 0.005 % Cream Apply to psoriasis twice daily on weekends (Wednesday and Wednesday). 60 Gram 3 04/28/2023 Active clobetasoL (TEMOVATE) 0.05 % Ointment Apply to psoriasis twice daily on weekdays. (Wednesday through Wednesday) 60 Gram 3 04/28/2023 Active calcipotriene (DOVONEX) 0.005 % Cream Apply to psoriasis twice daily on week days 60 Gram 3 10/14/2023 Active clobetasoL (TEMOVATE) 0.05 % Ointment Apply to psoriasis twice daily on weekends as needed 60 Gram 3 10/14/2023 Active bisoprolol-hydr oCHLOROthiazide (ZIAC) 10-6.25 mg tablet Take 1 tablet orally daily 90 Tablet 1 04/18/2024 Active bisoprolol-hydr oCHLOROthiazide (ZIAC) 10-6.25 mg tablet Take 1 Tablet by mouth daily. 90 Tablet 1 04/19/2024 Active cholecalciferol 1,250 mcg (50,000 unit) Capsule Take 1 Capsule (50,000 Units) by mouth every 7 days. 12 Capsule 1 06/01/2024 Active lovastatin (MEVACOR) 20 mg tablet Take 1 Tablet (20 mg) by mouth every evening. 90 Tablet 3 06/01/2024 Active lovastatin (MEVACOR) 10 mg tablet Take one tablet (10 MG) orally daily 90 Tablet 1 04/18/2024 4 Discontinued(Dos e/form adjustment) lovastatin (MEVACOR) 10 mg tablet Take 1 Tablet (10 mg) by mouth daily. 90 Tablet 1 04/19/2024 4 Discontinued Encounters Date Type Department Care Team Description 04/10/2024 External Device Data ST[facility] ABSTRACTION Provider, Abstract 04/05/2024 External Device Data [facility] ABSTRACTION Provider, Abstract from Last 3 Months Immunizations Name Administration Dates Next Due INFLUENZA VACCINE QUADRIVALENT 6 MOS UP PF IM ,04/05/2022 INFLUENZA VACCINE TRIVALENT SPLIT VIRUS, (6 MOS UP), 0.5ML (PF), IM 03/16/2024 Social History Tobacco Use Types Packs/Day Years Used Date Smoking Tobacco: Never Assessed Sex and Gender Information Value Date Recorded Sex Assigned at Not on file Gender Identity Not on file Sexual Orientation Not on file Plan of Treatment Health Maintenance Due Date Last Done Comments DTAP/TDAP/TD VACCINES (1 - Tdap) 02/16/1991 HEPATITIS B VACCINES (1 of 3 - 19+ 3-dose series) 02/16/1991 COLORECTAL SCREENING 02/16/2017 Colorectal Cancer Screening 02/16/2017 FIT-DNA Q 3 years 02/16/2017 FIT/FOBT Q 1 year 02/16/2017 Flex Sig/CT Colonography Q 5 years 02/16/2017 ZOSTER VACCINE (1 of 2) 02/16/2022 INFLUENZA VACCINE Completed 03/16/2024, 04/03/2023, 04/05/2022 PNEUMOCOCCAL VACCINE 0-64 YEARS Aged Out No longer eligible b ased on patient's age to complete this topic
--- OUTSIDE RECORDS SUMMARY | 2024-06-06 16:46 | XMS_ITS | Encounter Summary ---
Author Organization [facility] Address [address] [place] [address] Phone Care Team Providers Care Diagnostics Sales Developer Name Role Phone Harjinder Goff MD Primary Care Provider Encounter Details Date Type Department Care Team (Latest Contact Info) Description 09/18/2020 Orders Only [facility] HAND/WRIST Scanning, Provider Social History Tobacco Use Types Packs/Day Years Used Date Smoking Tobacco: Former Cigarettes 0.5 2.5 0 12/1993 - 1996 Smokeless Tobacco: Never Sex and Gender Information Value Date Recorded Sex Assigned at Not on file 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 Gender Identity Not on file Sexual Orientation Not on file 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 on file Not on file documented as of this encounter Plan of Treatment Not on file documented as of this encounter Procedures Procedure Name Priority Date/Time Associated Diagnosis Comments SCAN - RADIOLOGY/IMAGING 09/18/2020 documented in this encounter Results * SCAN - RADIOLOGY/IMAGING (09/18/2020) Anatomical Region Laterality Modality Other us Provider Scanning Final Result documented in this encounter Visit Diagnoses Not on filedocumented in this encounter Care Teams Diagnostics Sales Developer Relationship Specialty Start Date End Date Harjinder Goff MD PCP - General Family Practice 08/13/20 documented as of this encounter
--- OUTSIDE RECORDS SUMMARY | 2024-06-06 16:46 | XMS_ITS | Encounter Summary ---
Author Organization [facility] Address [address] [place] [address] Care Team Providers Care Rand Tacker Name Role Phone Unavailable Primary Care Provider Unavailabl e Reason for Visit * Reason Comments Medication Refill Encounter Details Date Type Department Care Team (Late st Contact Info) Description 11/02/2021 Refill [facility] [place] [address] [place] [address] Ramandeep Mckenzie, DISEASE EDUCATION SPECIALIST [address] [place] [address] Social History Tobacco Use Types [...]
--- OUTSIDE RECORDS SUMMARY | 2024-06-06 16:46 | XMS_ITS | Encounter Summary ---
Author Organization [facility] Address [address] [place] [address] Care Team Providers Care Manager Multicultural Name Role Phone Lacie Arredondo MD Primary Care Provider [phone] Reason for Visit * Reason Comments Imm Inj Encounter Details Date Type Department Care Team (Late st Contact Info) Description 04/22/2017 7:00 PM CLINICAL PSYCHOLOGIST PRIVATE PRACTICE Office Visit [facility] AT [address] [phone] Provider, [facility] Need for vaccination (Primary Dx) Social History Tobacco Use Types Packs/Day Years Used Date Smoking Tobacco: Never Assessed Sex and Gender Information Value Date Recorded Sex Assigned at Not on file Gender Identity Not on file Sexual Orientation Not on file documented as of this encounter Progress Notes * Yoel Reardon APRN-CNP - 04/22/2017 9:42 AM CST Pt presents for Flu shot Tolerated well ICAL PSYCHOLOGIST PRIVATE PRACTICE documented in this encounter Plan of Treatment Not on file documented as of this encounter Visit Diagnoses Diagnosis Need for vaccination- Primary Need for prophylactic vaccination and inoculation against unspecified single disease documented in this encounter Care Teams Manager Multicultural Relationship Specialty Start Date End Date Lacie Arredondo MD PCP - General Family Medicine 05/13/16 documented as of this encounter
--- OUTSIDE RECORDS SUMMARY | 2024-06-06 16:46 | XMS_ITS | Clinical Summary ---
Author Organization [facility] Address [address] [place] [address] Care Team Providers Care Teacher Cclc Name Role Phone Harjinder Goff MD Primary [...] Active Active Problems No known active problems Surgical History Surgery Date Site/Laterality Comments KNEE SURGERY Medical History Medical History Date Comments Hypertension Hypercholesteremia Family History Medical History Relation Name Comments Heart disease Father Cancer Mother Relation Name Status Comments Father Mother Social History Tobacco Use Types Packs/Day Years Used Date Smoking Tobacco: Former Cigarettes 0.5 2.5 0 12/1993 - 1996 Smokeless Tobacco: Never Personal Safety Answer Date Recorded Getting School Help Needed Not on file 08/21 Sex and Gender Information Value Date Recorded Sex Assigned at Not on file Legal Sex Male 3:58 AM EVENT SPECIALIST PRODUCT 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
--- OUTSIDE RECORDS SUMMARY | 2024-06-06 16:46 | XMS_ITS | Encounter Summary ---
Author Organization [facility] Address [address] [place] [address] Phone Care Team Providers Care Safety Deposit Clerk Name Role Phone Harjinder Goff MD Primary Care Provider Reason for Visit * Reason Comments Pain Encounter Details Date Type Department Care Team (Late st Contact Info) Description 10/30/2020 8:50 AM CDT Office Visit [facility] Orthopaedic Surgery [address] [place] [address] Advanced Medicine 6th [place] [address] [place] [address] Bulmaro Govea MD 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 He states that he predominantly wear his brace at night and this is somewhat helpful tohim. He used Mobic for the interval months and ran out. As soon as he ran out of Mobic he states significant return of pain and he has been using ibuprofen since. He has pain mostly with wrist rotation. He denies any numbness tingling, clicking popping or catching. PHYSICAL EXAM The patient was alert and oriented normally. Normal affect. Skin is intact, pulses normal, and neurologically intact. He is a well-appearing 50-year-old male with skin intact. He has 60?? of wrist extension and 50?? of wrist flexion bilaterally he has symmetric supination of pronate 80 nieves to 80 in 90?? with respectively. He has a positive ECU synergy exam and he is less tender over the TFCC. There is no ECU subluxation. He has no ulnar impaction on examination and no LT instability. He is warm and well perfused distally. 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 We have discussed the options between MRI and ECU injection. We have also discussed that we typically only perform 1 injection into the ECU tendon sheath given the risk of tendon weakening from this procedure. He would like to proceed with an ECU steroid injection today. We will see how his symptoms progress after this and if this does not appropriately control his symptoms we will proceed with an MRI. Today we recommended a steroid injection. Risks of the injection were explained to include infection, flare reaction, skin depigmentation, dimpling, and possible tendon rupture or damage to cartilage with repeated injections. With an alcohol and betadine preparation we injected 40 mg of Depo-medrol ([facility] -[id number] , Lot#[id number]) mixed with lidocaine, without difficulty into the ECU tendon sheath. We have advised him to ice and elevate tonight and that he might take Tylenol or ibuprofen to help with swelling as the steroid takes a number of days to set in. All questions were answered and the patient was in agreement and understanding with this plan of care. Happy to see him back in the next month to assess the response to treatment. Depending on the relief we may consider an alternative injection into the ulnar carpal joint or finally if we have to an MRI. Dr. Bulmaro Govea dictating with [employer]. Optical Instrument Repairer variances may occur. I was present for the critical portion of the history, physical examination and participated in theradiographic review and medical decision making on this patient. I agree with this report which wasgenerated with the assistance of Dr. Hendrix. Bulmaro Govea M.D. Maintenance Journeyman Hand and Upper Extremity Surgery [facility] documented in this encounter Plan of Treatment Not on file documented as of this encounter Visit Diagnoses Diagnosis Right wrist pain- Primary Pain in joint, forearm documented in this encounter Care Teams Safety Deposit Clerk Relationship Specialty Start Date End Date Harjinder Goff MD PCP - General Family Practice 08/13/20 documented as of this encounter
--- OUTSIDE RECORDS SUMMARY | 2024-06-06 16:46 | XMS_ITS | Encounter Summary ---
Author Organization [facility] Address [address] [place] [address] Care Team Providers Care Maintenance Foreman Name Role Phone Unavailable Primary Care Provider Unavailabl e Encounter Details Date Type Department Care Team (Late st Contact Info) Description 04/10/2024 External Device Data ST[facility] ABSTRACTION [...]
--- OUTSIDE RECORDS SUMMARY | 2024-06-06 16:46 | XMS_ITS | Encounter Summary ---
Author Organization [facility] Address [address] [place] [address] Phone Care Team Providers Care Paper Conservator Name Role Phone Harjinder Goff MD Primary Care Provider Encounter Details Date Type Department Care Team (Latest Contact Info) Description 01/07/2021 Orders Only [facility] HAND/WRIST Scanning, Provider Social History Tobacco Use Types Packs/Day Years Used Date Smoking Tobacco: Former Cigarettes 0.5 2.5 0 12/1993 - 1996 Smokeless Tobacco: Never Sex and Gender Information Value Date Recorded Sex Assigned at Not on file 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 Gender Identity Not on file Sexual Orientation Not on file 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 on file Not on file documented as of this encounter Plan of Treatment Not on file documented as of this encounter Procedures Procedure Name Priority Date/Time Associated Diagnosis Comments SCAN - RADIOLOGY/IMAGING 01/07/2021 documented in this encounter Results * SCAN - RADIOLOGY/IMAGING (01/07/2021) Anatomical Region Laterality Modality Other us Provider Scanning Final Result documented in this encounter Visit Diagnoses Not on filedocumented in this encounter Care Teams Paper Conservator Relationship Specialty Start Date End Date Harjinder Goff MD PCP - General Family Practice 08/13/20 documented as of this encounter
--- OUTSIDE RECORDS SUMMARY | 2024-06-06 16:46 | XMS_ITS | Encounter Summary ---
Author Organization [facility] Address [address] [place] [address] Care Team Providers Care Machine Steak Tenderizer Name Role Phone Lacie Arredondo MD Primary Care Provider [phone] Encounter Details Date Type Department Care Team (Late st Contact Info) Description 09/29/2019 2:40 PM CDT Office Visit [facility] AT [address] [address] Provider, [facility] physical exam (Primary Dx) Social History Tobacco Use Types [...] have Coronavirus / COVID-19? No / Unsure 09/29/2019 1:50 PM CDT documented as of this encounter Last Filed Vital Signs Vital Sign Reading Time Taken Comments Blood Pressure 118/72 09/29/2019 2:33 PM CDT Pulse 62 09/29/2019 2:33 PM CDT Temperature 36.7 ??C (98.1 ??F) 09/29/2019 2:33 PM CD T Respiratory Rate 20 09/29/2019 2:33 PM CDT Oxygen Saturation - - Inhaled Oxygen Concentration - - Weight 102.1 kg (225 lb) 09/29/2019 2:33 PM CDT Height 183 cm (6' 0.05 ) 09/29/2019 2:33 PM CDT Body Mass Index 30.48 09/29/2019 2:33 PM CDT documented in this encounter Progress Notes * Yoel Reardon, CANTEEN OPERATOR-INFORMATION TECHNOLOGY TEACHER - 09/29/2019 2:26 PM CDT Subjective: Robin Rosales is a 49 year old male who presents for a school sports physical exam. He has self present for exam. He plans to participate in boy tobacco drummer Does patient/parent have any concerns? No Medications reviewed. No outpatient medications have been marked as taking for the 09/29/19 encounter (Appointment) with Provider, Heriberto Topete. . Allergies Allergen Reactions ??? Codeine Other Intolerance Vaccines: Reported as UTD Last Tetanus: UTD No past medical history on file. No past surgical history on file. family history is not on file. Social History Socioeconomic History ??? Marital status: Spouse name: Not on file ??? Number of children: Not on file ??? Years of education: Not on file ??? Highest education level: Not on file Occupational History ??? Not on file Social Needs ??? Financial resource strain: Not on file ??? Food insecurity Worry: Not on file Inability: Not on file ??? Transportation needs Medical: Not on file Non-medical: Not on file Tobacco Use ??? Smoking status: Not on file Substance and Sexual Activity ??? Alcohol use: Not on file ??? Drug use: Not on file ??? Sexual activity: Not on file Lifestyle ??? Physical activity Days per week: Not on file Minutes per session: Not on file ??? Stress: Not on file Relationships ??? Social connections Talks on phone: Not on file Gets together: Not on file Attends anglican service: Not on file Active member of club or organization: Not on file Attends meetings of clubs or organizations: Not on file Relationship status: Not on file ??? Intimate partner violence Fear of current or ex partner: Not on file Emotionally abused: Not on file Physically abused: Not on file Forced sexual activity: Not on file Other Topics Concern ??? Not on file Social History Narrative ??? Not on file Social History Tobacco Use Smoking Status Not on file Denies use of steroids, other performance, or recreational drugs. Patient denies any history of concussion, head injury, or seizures. Patient denies any history of chest pain, chest pain with exertion, feeling lightheaded or dizziness with exercise. Denies difficulty breathing during or after exercise. Denies history of hernia. Denies any family history of sudden cardiac or unexplained for those under age 50. Denies any family history of cardiomyopathy. Denies any family history of Marfan Syndrome. No current outpatient medications on file. No current facility-administered medications for this visit. Review of Systems Constitutional: Negative EMNT: Negative Cardio: Negative Resp: Negative Gastro: Negative : Denies genital pain or inguinal bulge. Females only: LMP NA Gone more than 3 months without a menstrual cycle? No Musculoskeletal: Negative Skin: Negative Lymphatic/Allergy: Negative Neuro: Negative Psych: Do you feel stressed out or under a lot of pressure? No Do you ever feel sad, hopeless, depressed, or anxious? No Do you feel safe at your home or residence? Yes Objective: No exam data present There were no vitals filed for this visit. General appearance: alert, cooperative, no distress Head: normocephalic, without trauma Eyes: sclera and conjunctiva clear, EOMI and PERRLA, lids normal Ears: canals clear, tympanic membranes normal, hearing intact to voice Nose: nares open; no septal deviation is noted Throat: no mucous membrane abnormalities Neck: range of motion is intact, no masses, thyroid not enlarged, no adenopathy Back: no deformity or tenderness Lungs: breath sounds normal and symmetric; no rales or wheezes Heart: regular rhythm, normal S1 and S2, without murmurs, gallops or rubs Abdomen: soft without mass, non-tender, with normal bowel sounds Extremities: no clubbing, cyanosis or edema Circulation: Carotid, femoral and pedal pulses are intact and symmetrical, aorta is not enlarged, no carotid bruits Joints: ranges of motion normal without inflammation, effusion or deformity Skin: no rashes or other abnormalities are noted Neurologic: mental status normal; alert and oriented X 3; cranial nerves II - XII are grossly intact Functional: Able to complete: double-leg squat test, single-leg squat test and box drop test Assessment: Satisfactory camp exam Plan: Permission granted to participate in [facility] FREDRICK Ureña 09/29/2019 2:26 PM documented in this encounter Plan of Treatment Not on file documented as of this encounter Visit Diagnoses Diagnosis School physical exam- Primary Health examination of defined subpopulation documented in this encounter Care Teams Machine Steak Tenderizer Relationship Specialty Start Date End Date Lacie Arredondo MD PCP - General Family Medicine 05/13/16 documented as of this encounter
--- OUTSIDE RECORDS SUMMARY | 2024-06-06 16:46 | XMS_ITS | Encounter Summary ---
Author Organization [facility] Address [facility] [place] [address] Care Team Providers Care Jewelry Making Instructor Name Role Phone Lacie Arredondo MD Primary Care Provider [phone] Encounter Details Date Type Department Care Team (Latest Contact Info) Description 09/29/2019 Travel Social History Tobacco Use Types Packs/Day [...] on filedocumented in this encounter Care Teams Jewelry Making Instructor Relationship Specialty Start Date End Date Lacie Arredondo MD PCP - General Family Medicine 05/13/16 documented as of this encounter
--- OUTSIDE RECORDS SUMMARY | 2024-06-06 16:46 | XMS_ITS | Encounter Summary ---
Author Organization [facility] Address [address] [place] [address] Phone Care Team Providers Care Flower Arranger Name Role Phone Harjinder Goff MD Primary Care Provider Encounter Details Date Type Department Care Team (Late st Contact Info) Description 02/14/2021 Orders Only [facility] Orthopaedic Surgery [address] 2[address] [place] [id number] Bulmaro Govea MD [address] [place] [address] Social History Tobacco Use Types Packs/Day Years Used Date Smoking Tobacco: Former Cigarettes 0.5 2.5 0 12/1993 - 1996 Smokeless Tobacco: Never Sex and Gender Information Value Date Recorded Sex Assigned at Not on file 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 No obvious sign of any autoimmune arthritis. The only thing that showed up was that he was slightly low on his blood count which was just off the normal limit and isn't anything I would be worried about - just continue annual check ups and blood work with primary MD. For the wrist, this means that we just manage irritation with activity modification, bracing intermittently, NSAIDs. If things were to really worsen then we could discuss further treatment but hopefully this will just stay under control with some mild inflammation/regular adult arthritis. documented in this encounter Plan of Treatment Not on file documented as of this encounter Procedures Procedure Name Priority Date/Time Associated Diagnosis Comments C4 COMPLEMENT Routine 02/14/2021 11:09 AM CDT CBC WITH AUTO DIFFERENTIAL Routine 02/14/2021 11:09 AM CDT CYCLIC CITRUL PEPTIDE ANTIBODY, IGG Routine 02/14/2021 11:09 AM CDT PATTIE REFLEX TO QUANTITATIVE Routine 02/14/2021 11:09 AM CDT ERYTHROCYTE SEDIMENTATION RATE Routine 02/14/2021 11:09 AM CDT RHEUMATOID FACTOR Routine 02/14/2021 11: 09 AM CDT C3 COMPLEMENT Routine 02/14/2021 11:09 AM CDT CRP (ACUTE PHASE) Routine 02/14/2021 11: 09 AM CDT URIC ACID Routine 02/14/2021 11:09 AM CDT CALCIUM LEVEL Routine 02/14/2021 11:09 AM CDT documented in this encounter Results * Cyclic citrul peptide antibody, IgG (02/14/2021 11:09 AM CDT) Cyclic citrullinated peptide ab, IgG <16 UNITS [facility] Comment: Reference Range Negative: ?<20 Weak Positive: ? 20-39 Moderate Positive: ?? 40-59 Strong Positive: ? >59 02/14/2021 11:0 9 AM CDT 02/14/2021 11:13 AM CDT Narrative [facility] - 2021 3:37 PM CDT FASTING:NO FASTING: NO us Bulmaro Govea MD LAB BLOOD ORDERABLES Clemencia l Result Performing Organization Address City/[facility]/ZIP Co de Phone Number [facility] [address] [place] [address] * CRP (acute phase) (02/14/2021 11:09 AM CDT) C-RP 6.3 <8.0 mg/L [facility] 02/14/2021 11:0 9 AM CDT 02/14/2021 11:13 AM CDT Narrative [facility] - 2021 3:37 PM CDT FASTING:NO FASTING: NO us Bulmaro Govea MD LAB BLOOD ORDERABLES Clemencia l Result Performing Organization Address [facility] Co de Phone Number [facility] [address] [place] [address] * Rheumatoid factor (02/14/2021 11:09 AM CDT) Rheumatoid factor, quant <14 <14 IU/mL [facility] 02/14/2021 11:0 9 AM CDT 02/14/2021 11:13 AM CDT Narrative [facility] - 2021 3:37 PM CDT FASTING:NO FASTING: NO us Bulmaro Govea MD LAB BLOOD ORDERABLES Clemencia l Result Performing Organization Address City/[facility] Co de Phone Number [facility] [address] [place] [address] * C4 complement (02/14/2021 11:09 AM CDT) Complement component C4C 29 15 - 53 mg/dL [facility] 02/14/2021 11:0 9 AM CDT 02/14/2021 11:13 AM CDT Narrative [facility] - 2021 3:37 PM CDT FASTING:NO FASTING: NO Bulmaro Govea MD LAB BLOOD ORDERABLES Clemencia l Result Performing Organization Address [facility] Co de Phone Number [facility] [address] [place] [address] * C3 complement (02/14/2021 11:09 AM CDT) Complement component C3C 124 82 - 185 mg/dL [facility] 02/14/2021 11:0 9 AM CDT 02/14/2021 11:13 AM CDT Narrative [facility] - 2021 3:37 PM CDT FASTING:NO FASTING: NO Bulmaro Govea MD LAB BLOOD ORDERABLES Clemencia l Result Performing Organization Address [facility] de Phone Number [facility] [address] [place] [address] * PATTIE reflex to quantitative (02/14/2021 11:09 AM CDT) PATTIE, qual NEGATIVE NEGATIVE [facility] Comment: PATTIE IFA is a first line screen for detecting the presence of up to approximately 150 autoantibodies in various autoimmune diseases. A negative PATTIE IFA result suggests an PATTIE-associated autoimmune disease is not present at this time, but is not definitive. If there is high clinical suspicion for Sjogren's syndrome, testing for anti-SS-A/Ro antibody should be considered. Anti-Kirsty-1 antibody should be considered for clinically suspected inflammatory myopathies. AC-0: Negative International Consensus on PATTIE Patterns (https://doi.org/10.1515/jdib-6721-3080) For additional information, please refer to http://education.[employer]/faq/LQE948 (This link is being provided for informational/ educational purposes only.) ?? 02/14/2021 11:0 9 AM CDT 02/14/2021 11:13 AM CDT [facility] - 2021 3:37 PM CDT FASTING:NO FASTING: NO Bulmaro Govea MD LAB BLOOD ORDERABLES Clemencia rivka Result [facility] Ar[facility] [address] [facility] [place] [address] * (ABNORMAL) CBC with auto differential (02/14/2021 11:09 AM CDT) WBC 6.0 3.8 - 10.8 Thousand/u L [facility] RBC, POC 4.30 4.20 - 5.80 Million/uL [facility] Hgb 12.8(L) 13.2 - 17.1 g/dL [facility] Hct 38.8 38.5 - 50.0 % [facility] MCV 90.2 80.0 - 100.0 fL [facility] MCH 29.8 27.0 - 33.0 pg [facility] MCHC 33.0 32.0 - 36.0 g/dL [facility] Rdw 13.9 11.0 - 15.0 % [facility] Platelets 231 140 - 400 Thousand/u L [facility] MPV 10.3 7.5 - 12.5 fL [facility] Neutrophils, abs 3,996 1,500 - 7,800 cells/uL [facility] Lymphocytes, abs 1,170 850 - 3,900 cells/uL [facility] Monocyte abs 684 200 - 950 cells/uL [facility] Eosinophils, abs 78 15 - 500 cells/uL [facility] Basophils, abs 72 0 - 200 cells/uL [facility] Neutrophils 66.6 % [facility] Lymphocyte pct 19.5 % [facility] Monocytes 11.4 % [facility] Eosinophils 1.3 % [facility] Basophils 1.2 % [facility] 02/14/2021 11:0 9 AM CDT 02/14/2021 11:13 AM CDT Narrative [facility] - 2021 3:37 PM CDT FASTING:NO FASTING: NO Bulmaro Govea MD LAB BLOOD ORDERABLES Clemencia l Result Performing Organization Address [facility]/ZIP Co de Phone Number [facility] [address] [place] [address] * Erythrocyte sedimentation rate (02/14/2021 11:09 AM CDT) Erythrocyte sedimentation rate 11 < OR = 15 mm/h [facility] 02/14/2021 11:0 9 AM CDT 02/14/2021 11:13 AM CDT Narrative [facility] - 2021 3:37 PM CDT FASTING:NO FASTING: NO Bulmaro Govea MD LAB BLOOD ORDERABLES Clemencia l Result Performing Organization Address [facility] Co de Phone Number [facility] [address] [place] [address] * Uric acid (02/14/2021 11:09 AM CDT) Uric acid 6.5 4.0 - 8.0 mg/dL [facility] Comment: Therapeutic target for gout patients: <6.0 mg/dL ?? 02/14/2021 11:0 9 AM CDT 02/14/2021 11:13 AM CDT Narrative [facility] - 2021 3:37 PM CDT FASTING:NO FASTING: NO Bulmaro Govea MD LAB BLOOD ORDERABLES Clemencia l Result Performing Organization Address City/[facility]/ZIP Co de Phone Number [facility] [address] [address] * Calcium level (02/14/2021 11:09 AM CDT) Calcium 9.4 8.6 - 10.3 mg/dL [facility] 02/14/2021 11:0 9 AM CDT 02/14/2021 11:13 AM CDT Narrative [facility] - 02/05/2021 8:26 AM CDT FASTING:NO FASTING: NO us Bulmaro Govea MD LAB BLOOD ORDERABLES Edit ed Result - Final [facility] [address] [place] [address] documented in this encounter Visit Diagnoses Not on filedocumented in this encounter Care Teams Flower Arranger Relationship Specialty Start Date End Date Harjinder Goff MD PCP - General Family Practice 08/13/20 documented as of this encounter
--- OUTSIDE RECORDS SUMMARY | 2024-06-06 16:46 | XMS_ITS | Encounter Summary ---
Author Organization [facility] Address [address] [place] [address] Care Team Providers Care City Secretary Name Role Phone Lacie Arredondo MD Primary Care Provider [phone] Reason for Visit * Reason Comments Ear Problem Ear Pain Encounter Details Date Type Department Care Team (Late st Contact Info) Description 01/05/2020 10:40 AM CDT Office Visit [facility] AT [address] [phone] Provider, [facility] Acute swimmer's ear of left side (Primary Dx) Social History Tobacco Use Types [...] AM CDT documented as of this encounter Last [...] Mass Index 32.55 01/05/2020 10:49 AM CDT documented in this encounter Patient Instructions * Patient Instructions* Yoel Reardon APRN-CNP - 01/05/2020 11:02 AM CDT Otitis Externa ??? Acetaminophen (Tylenol) or Ibuprofen (Advil, Motrin) for ear pain. You may alternate acetaminophen and ibuprofen every 3-4 hours to manage ear pain. Do not exceed recommended daily maximum dose of either product. ??? Position affected ear upwards for 5 minutes after application of ear drops. ??? Apply heat to the area around the ear to relieve pain using a warm washcloth, towel from the dryer, heating pad, hot water bottle. Do not leave heating pad turned on while sleeping. ??? Keep the infected ear dry. USE ear plugs or shower cap for showering. ??? Avoid swimming until infection has resolved. ??? Do not go under water in hot tubs. ??? To prevent future episodes, use over the counter ear products containing a diluted solution of acetic acid or rubbing alcohol after swimming to keep ear canal dry. Apply as directed and gently message to allow penetration. Otitis Externa Follow Up Follow up with the clinic or your primary care provider if symptoms worsen or do not improve withinthe next 48 hours documented in this encounter Progress Notes * Yoel Reardon APRN-CNP - 01/05/2020 11:04 AM CDT Subjective: Robin Rosales is a 49 year old male who presents to the clinic today for Chief Complaint Patient presents with ??? Ear Problem ??? Ear Pain . Primary Care Physician is Lacie Arredondo MD. Symptoms include ear pain left and plugged sensation left. Onset of symptoms was 2 days ago, rapidly worsening since that time. He Has also reported the following symptoms: left ear pressure/pain, and is drinking plenty of fluids. Past Medical History: Diagnosis Date ??? Hyperlipidemia ??? Hypertension No family history on file. Current Outpatient Medications Medication Sig Dispense Refill ??? BISOPROLOL FUMARATE PO ??? LOVASTATIN PO ??? [id number] (CORTISPORIN) 3.5-88623-5 otic solution Instill 4 drops into left ear 4 times daily for 7 days 10 mL 0 No current facility-administered medications for this visit. Allergies Allergen Reactions ??? Codeine Other Intolerance Social History Socioeconomic History ??? Marital status: [...] on file Tobacco Use ??? Smoking status: Never Smoker ??? Smokeless tobacco: Never Used Substance and Sexual Activity ??? Alcohol use: Yes ??? Drug use: Not on file ??? Sexual activity: Not on file Lifestyle ??? Physical activity Days per week: Not on file Minutes per session: Not on file ??? Stress: Not on file Relationships ??? Social connections Talks on phone: Not on file Gets together: Not on file Attends moravian service: Not on file Active member of [...] Social History Narrative ??? Not on file Review of Systems Constitutional: Negative Eyes: Negative Ears, nose, mouth, and throat: Positive for earaches on left, Negative for vertigo, sinus trouble, persistent sore throat Respiratory: Negative Cardiovascular: Negative Neurological: Negative Objective: BP 126/82 (BP SITE: LEFT ARM, BP POSITION: SITTING, BP CUFF SIZE: 11L) Pulse 89 Temp 98 ??F (36.7 ??C) (Oral) Resp 16 Ht 1.829 m (6') Wt 108.9 kg (240 lb) SpO2 97% BMI 32.55 kg/m2 Exam General appearance: alert, cooperative, no distress Ears: pain with motion of pinna and tragus on left. Right tympanic membrane - normal nor Left tympanic membrane - normal. erythema and edema of ear canal on left Nose: nares open; no septal deviation is noted Throat: no mucous membrane abnormalities Neck: range of motion is intact, no masses, thyroid not enlarged, no adenopathy Lungs: breath sounds normal and symmetric; no rales or wheezes Heart: regular rhythm, normal S1 and S2, without murmurs, gallops or rubs Neurologic: mental status normal; alert and oriented X 3; cranial nerves II - XII are grossly intact Assessment: Encounter Diagnosis Name Primary? Acute swimmer's ear of left side Yes Plan: 1. See orders below for treatment plan 2. OTC meds (acetaminophen, ibuprofen- doses discussed with parent), fluids, rest, avoid carbonated/alcoholic or caffeinated beverages. 3. Follow up in 3 days. 4. Referral placed for PCP if none on file 5. See orders below Otitis Externa ??? Acetaminophen (Tylenol) or Ibuprofen (Advil, Motrin) for ear pain. You may alternate acetaminophen and ibuprofen every 3-4 hours to manage ear pain. Do not exceed recommended daily maximum dose of either product. ??? Position affected ear upwards for 5 minutes after application of ear drops. ??? Apply heat to the area around the ear to relieve pain using a warm washcloth, towel from the dryer, heating pad, hot water bottle. Do not leave heating pad turned on while sleeping. ??? Keep the infected ear dry. USE ear plugs or shower cap for showering. ??? Avoid swimming until infection has resolved. ??? Do not go under water in hot tubs. ??? To prevent future episodes, use over the counter ear products containing a diluted solution of acetic acid or rubbing alcohol after swimming to keep ear canal dry. Apply as directed and gently message to allow penetration. Otitis Externa Follow Up Follow up with the clinic or your primary care provider if symptoms worsen or do not improve withinthe next 48 hours Orders Placed This Encounter ??? tuwbjzmy-vpgfdcieq-rz (CORTISPORIN) 3.5-73655-8 otic solution Sig: Instill 4 drops into left ear 4 times daily for 7 days Dispense: 10 mL Refill: 0 No results found for this or any previous visit (from the past 24 hour(s)). documented in this encounter Plan of Treatment Not on file documented as of this encounter Visit Diagnoses Diagnosis Acute swimmer's ear of left side- Primary documented in this encounter Care Teams City Secretary Relationship Specialty Start Date End Date Lacie Arredondo MD PCP - General Family Medicine 05/13/16 documented as of this encounter
--- OUTSIDE RECORDS SUMMARY | 2024-06-06 16:46 | XMS_ITS | Encounter Summary ---
Author Organization [facility] Address [address] [place] [address] Phone Care Team Providers Care Command And Control Officer Name Role Phone Harjinder oGff MD Primary Care Provider Reason for Referral * Diagnostic Imaging (Routine) - Closed Specialty Diagnoses / Procedures Referred By Kary rodas Referred To Contact Diagnoses Right wrist pain Procedures Injection Wrist Right Arthro Only Bulmaro Govea MD Phone: tel: fax: [address] [address] Referral ID Status Reason Start Date Expiration Date Visits Re quested Visits Authorized [id number] Closed 11/27/2020 12/27/2021 1 1 * MRI/CAT/PET Scan (Routine) - Closed Specialty Diagnoses / Procedures Referred By Kary rodas Referred To Contact Radiology Diagnoses Right wrist pain Procedures MRI Wrist Arthrogram Right W Contrast Bulmaro Govea MD Phone: tel: fax: [address] [address] Referral ID Status Reason Start Date Expiration Date Visits Re quested Visits Authorized [id number] Closed 12/12/2020 03/12/2021 1 1 Reason for Visit * Reason Comments Pain Encounter Details Date Type Department Care Team (Late st Contact Info) Description 11/27/2020 8:50 AM CDT Office Visit [facility] Orthopaedic Surgery [address] [place] [address] [place] [address] Bulmaro Govea MD [address] 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 Again comes and goes in terms of how much pain would stop him from playing any baseball. He takes ibuprofen in the evening. The injection may have made things a little bit better in the ECU tendon about a weekbut did not make everything pain-free and does not seem to be getting any substantial long- lasting relief. PHYSICAL EXAM The patient was alert and oriented normally. Normal affect. Skin is intact, pulses normal, and neurologically intact. Right wrist today moving well. No outward sign of trauma. ECU is stable. DRUJ is stable. When he fully pronates he just gets this ulnar-sided ache. He does have some tenderness at the fovea. Pisiform does not seem to hurt. ASSESSMENT AND PLAN This patient has some ulnar wrist pain that has been going on since May. It just does not seemlike it is getting better despite bracing meloxicam and steroid injection in the ECU. He did not have any trauma so it still is a bit unusual that this is persisting. I would get an MRI arthrogram atthis time to better evaluate the joint and the TFCC. We will speak by phone afterwards but if we dosee intra-articular pathology maybe we will consider injection into the joint as another step. Dr. Bulmaro Govea dictating with Fluency Direct. Bilingual Customer Service variances may occur. Bulmaro Govea M.D. Civilian Technician Hand and Upper Extremity Surgery [facility] documented in this encounter Plan of Treatment Not on file documented as of this encounter Results * MRI Wrist Arthrogram [...] by: Monty Golden M.D. Bulmaro Govea MD [facility] MRI PROCEDURES Final Result * Injection Wrist Right Arthro Only (12/27/2020 [...] was obtained. ??Prior to beginning the procedure, [place] Protocol was performed to confirm the patient's [...] was obtained. Prior to beginning the procedure, [place] Protocol was performed to confirm the patient's [...] wrist pain- Primary Pain in joint, forearm Right wrist pain Pain in joint, forearm Right wrist pain Pain in joint, forearm documented in this encounter Care Teams Command And Control Officer Relationship Specialty Start Date End Date Harjinder Goff MD PCP - General Family Practice 08/13/20 documented as of this encounter
--- OUTSIDE RECORDS SUMMARY | 2024-06-06 16:46 | XMS_ITS | Encounter Summary ---
Author Organization [facility] Address [address] [place] [address] Care Team Providers Care Percussion Instrument Repairer Name Role Phone Unavailable Primary Care Provider Unavailabl e Reason for Visit * Reason Comments Medication Refill Encounter Details Date Type Department Care Team (Late st Contact Info) Description 12/04/[address] [facility] [place] [address] [address] Harjinder Goff MD [address] [id number] Social History Tobacco Use Types Packs/Day Years [...]
== END 2024-05-30 09:33 | disposition home or self-care (01) ==
LOC: ANHGOSHLAB 09:34
PROVIDERS: PCP Family Medicine; Visit Provider Nurse Practitioner Family
DX: I10 Essential (primary) hypertension (principal); E78.5 Hyperlipidemia, unspecified; E55.9 Vitamin D deficiency, unspecified; Z00.00 Encounter for general adult medical examination without abnormal findings
CPT/HCPCS: 36415; 80053; 80061; 82306; 84439; 84443; 85025

== ENCOUNTER 2024-10-25 08:53 | Outpatient (CLI) | payer OTHER, SELFPAY ==
--- NOTE | 2024-10-25 09:01 | EST_ITS ---
Patient Info Name: Robin Rosales Age: 54 years : 1970 Gender: Male Ht: 71 in Wt: 266 lbs BSA: 2.50 m2 HR: 59 bpm BP: 107 / 75 mmHg Exam Date: 10/25/2024 9:01 AM Patient Status: O Admit Date: 10/25/2024 Exam Type: CA stress test treadmill A treadmill exercise stress test was performed. Staff Attending Provider: Beth Nassar Exercise Technologist: Eden Main Exercise Physician: Franki Rodriguez DO Summary 1. 1. Negative Jaison exercise stress test for ischemic ST changes by ECG criteria. 2. 2. Good functional capacity, achieving 10 METs of workload. 3. 3. Hypertensive response to exercise. 4. 4. Appropriate HR response to exercise. 5. 5. Appropriate HR recovery at 1 minute post exercise. 6. 6. No imaging with stress testing. 7. 7. Patient informed of the above results. Protocol: Jaison Stress ECG Details Stage: REST Duration (min): 1 min : 7 sec Speed (mph): 0.0 Grade (%): 0 HR (bpm): 55 SBP (mmHg): 107 DBP (mmHg): 75 METS: --- Stage: REST Duration (min): 2 min : 42 sec Speed (mph): 0.0 Grade (%): 0 HR (bpm): 77 SBP (mmHg): 107 DBP (mmHg): 75 METS: --- Stage: STAGE 1 Duration (min): 1 min : 0 sec Speed (mph): 1.7 Grade (%): 10 HR (bpm): 88 SBP (mmHg): 107 DBP (mmHg): 75 METS: --- Stage: STAGE 1 Duration (min): 2 min : 0 sec Speed (mph): 1.7 Grade (%): 10 HR (bpm): 101 SBP (mmHg): 107 DBP (mmHg): 75 METS: --- Stage: STAGE 1 Duration (min): 3 min : 0 sec Speed (mph): 1.7 Grade (%): 10 HR (bpm): 103 SBP (mmHg): 154 DBP (mmHg): 55 METS: --- Stage: STAGE 2 Duration (min): 1 min : 0 sec Speed (mph): 2.5 Grade (%): 12 HR (bpm): 114 SBP (mmHg): 154 DBP (mmHg): 55 METS: --- Stage: STAGE 2 Duration (min): 2 min : 0 sec Speed (mph): 2.5 Grade (%): 12 HR (bpm): 126 SBP (mmHg): 166 DBP (mmHg): 69 METS: --- Stage: STAGE 2 Duration (min): 3 min : 0 sec Speed (mph): 2.5 Grade (%): 12 HR (bpm): 133 SBP (mmHg): 166 DBP (mmHg): 69 METS: --- Stage: STAGE 3 Duration (min): 1 min : 0 sec Speed (mph): 3.4 Grade (%): 14 HR (bpm): 141 SBP (mmHg): 176 DBP (mmHg): 67 METS: --- Stage: STAGE 3 Duration (min): 2 min : 0 sec Speed (mph): 3.4 Grade (%): 14 HR (bpm): 149 SBP (mmHg): 176 DBP (mmHg): 67 METS: --- Stage: STAGE 3 Duration (min): 3 min : 0 sec Speed (mph): 3.4 Grade (%): 14 HR (bpm): 153 SBP (mmHg): 108 DBP (mmHg): 43 METS: --- Stage: RECOVERY Duration (min): 0 min : 59 sec Speed (mph): 0.0 Grade (%): 0 HR (bpm): 136 SBP (mmHg): 108 DBP (mmHg): 43 METS: --- Stage: RECOVERY Duration (min): 1 min : 59 sec Speed (mph): 0.0 Grade (%): 0 HR (bpm): 113 SBP (mmHg): 108 DBP (mmHg): 43 METS: --- Stage: RECOVERY Duration (min): 2 min : 59 sec Speed (mph): 0.0 Grade (%): 0 HR (bpm): 98 SBP (mmHg): 207 DBP (mmHg): 51 METS: --- Stage: RECOVERY Duration (min): 3 min : 59 sec Speed (mph): 0.0 Grade (%): 0 HR (bpm): 91 SBP (mmHg): 207 DBP (mmHg): 51 METS: --- Stage: RECOVERY Duration (min): 4 min : 50 sec Speed (mph): 0.0 Grade (%): 0 HR (bpm): 86 SBP (mmHg): 166 DBP (mmHg): 55 METS: --- Rest HR: 77 bpm Peak HR: 153 bpm Rest Sys BP: 107 mmHg Peak Sys BP: 207 mmHg Max Pred HR: 168 bpm % Max Pred HR: 91 % Target HR: 143 bpm Max RPP: 31,671 bpm*mmHg Kaye Score: 4 BP Response: Patient exhibited a hypertensive response with stress Termination Reason: Reached target heart rate or workload Cardiac Symptoms: Shortness of breath Max ST Seg Deviation: -1.00 mm Total Time: 9 min : 0 sec Rest Mitchell BP: 75 mmHg Peak Mitchell BP: 51 mmHg Angina Score: None Total METS: 10.3 Resting ECG Sinus rhythm. Stress ECG No ST changes. Arrhythmias None. Report Signatures
--- OUTSIDE RECORDS SUMMARY | 2024-10-25 09:38 | XMS_ITS | Encounter Summary ---
Author Organization [facility] Healthcare Address [address] [place] [address] Care Team Providers Care Transit Worker Name Role Phone Harjinder Goff MD Primary Care Provider Encounter Details Date Type Department Care Team (Late st Contact Info) Description 12/26/2020 Telephone [facility] Radiology 1 [place] [address] Bulmaro Govea MD [address] 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
--- OUTSIDE RECORDS SUMMARY | 2024-10-25 09:38 | XMS_ITS | Clinical Summary ---
Author Organization [facility] Address [address] [facility] Attn: Epic Prelude ADT MALATHI CERRATO [address] Care Team Providers Care Traffic Maintenance Supervisor Name Role Phone Unavailable Primary Care Provider Unavailabl e Medications bisoprolol-hydr oCHLOROthiazide (ZIAC) 10-6.25 mg tablet Take 1 Tablet by mouth daily. 90 Tablet 1 04/21/2022 3:09 PM CERTIFIED JUVENILE PROBATION OFFICER 2 Active calcipotriene (DOVONEX) 0.005 % Cream Apply to psoriasis twice daily on weekends (Wednesday and Wednesday). 60 Gram 3 05/03/2023 3:59 PM CERTIFIED JUVENILE PROBATION OFFICER 3 Active clobetasoL (TEMOVATE) 0.05 % Ointment Apply to psoriasis twice daily on weekdays. (Wednesday through Wednesday) 60 Gram 3 05/03/2023 3:59 PM CERTIFIED JUVENILE PROBATION OFFICER 3 Active calcipotriene (DOVONEX) 0.005 % Cream Apply to psoriasis twice daily on week days 60 Gram 3 10/17/2023 12:19 PM CDT 4 Active clobetasoL (TEMOVATE) 0.05 % Ointment Apply to psoriasis twice daily on weekends as needed 60 Gram 3 10/17/2023 12:19 PM CDT 4 Active bisoprolol-hydr oCHLOROthiazide (ZIAC) 10-6.25 mg tablet Take 1 tablet orally daily 90 Tablet 1 4 Active bisoprolol-hydr oCHLOROthiazide (ZIAC) 10-6.25 mg tablet Take 1 Tablet by mouth daily. 90 Tablet 1 10/21/2024 9:22 AM CDT 4 Active cholecalciferol 1,250 mcg (50,000 unit) Capsule Take 1 Capsule (50,000 Units) by mouth every 7 days. 12 Capsule 1 10/21/2024 9:22 AM CDT 4 Active lovastatin (MEVACOR) 20 mg tablet Take 1 Tablet (20 mg) by mouth every evening. 90 Tablet 3 10/08/2024 10:21 AM CDT 4 Active calcipotriene-b etamethasone (Wynzora) 0.005-0.064 % Cream Apply to affected areas twice daily as directed 60 Gram 1 5 Active Encounters Date Type Department Care Team Description 08/15/2024 External Device Data [facility] ABSTRACTION Provider, Abstract 08/15/2024 External Device Data [facility] ABSTRACTION Provider, Abstract from Last 3 Months Immunizations Immunization Administration Dates Next Due (SHINGRIX)(50 YRS UP) ZOSTER VACCINE RECOMBINANT, 0.5 ML, IM 10/08/2024,07/22/2024 INFLUENZA VACCINE QUADRIVALENT 6 MOS UP PF IM ,04/05/2022 INFLUENZA VACCINE TRIVALENT SPLIT VIRUS, (6 MOS UP), 0.5ML (PF), IM 03/16/2024 Social History Tobacco Use Types Packs/Day Years Used Date Smoking Tobacco: Never Assessed Sex and Gender Information Value Date Recorded Sex Assigned at Not on file Legal Sex Male 3:27 PM CDT Gender Identity Not on file Sexual Orientation Not on file Plan of Treatment Health Maintenance Due Date Last Done Comments DTAP/TDAP/TD VACCINES (1 - Tdap) 02/16/1991 HEPATITIS B VACCINES (1 of 3 - 19+ 3-dose series) 02/16/1991 COLORECTAL SCREENING 02/16/2017 Colorectal Cancer Screening 02/16/2017 FIT-DNA Q 3 years 02/16/2017 FIT/FOBT Q 1 year 02/16/2017 Flex Sig/CT Colonography Q 5 years 02/16/2017 INFLUENZA VACCINE Completed 03/16/2024, , 04/05/2022 ZOSTER VACCINE Completed 10/08/2024, 07/22/2024 [facility] [place] [address] RX [employer] Express
--- OUTSIDE RECORDS SUMMARY | 2024-10-25 09:38 | XMS_ITS | Clinical Summary ---
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
--- OUTSIDE RECORDS SUMMARY | 2024-10-25 09:38 | XMS_ITS | Referral Summary ---
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
--- OUTSIDE RECORDS SUMMARY | 2024-10-25 09:38 | XMS_ITS | Clinical Summary ---
Author Organization [facility] [employer] Address [address] [place] [place] [address] Care Team Providers Care Hockey Scout Name Role Phone Lacie Arredondo MD Primary Care Provider [phone] Source Comments [facility],non-owned Affiliates and Associated Physician Practices is amultiple site organization consisting of ambulatory clinics and hospital sitesin [place], [place], [place]. This disclosure is being madepursuant to the Care Everywhere program and may not contain all information available regarding this patient. Last updated 18.[facility] [employer] Allergies Active Allergy Reactions Criticality Noted Date Comments Codeine Other 09/29/2019 Intolerance Medications * Be aware that medications may not be up to date on this document. Alwaysverify current medications with the patient. 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 Gender Identity Not on file Sexual Orientation Not on file Last Filed Vital Signs Vital Sign Reading Time Taken Comments Blood Pressure 126/82 01/05/2020 10:49 AM CDT Pulse 89 01/05/2020 10:49 AM CDT Temperature 36.7 C (98 F) 01/05/2020 10:49 AM CDT Respiratory Rate 16 [...] 3-dose series) 02/16/1991 SCREENING FOR DIABETES 09/29/2019 PNEUMOCOCCAL VACCINE 50+ (1 of 1 - PCV) 02/16/2022 ZOSTER VACCINE (1 of 2) 02/16/2022 COVID-19 VACCINE (1 - 2023-2 5 season) 2024 DEPRESSION SCREENING 06/07/2024 INFLUENZA VACCINE (Season Ended) 2025 02/09/2020, 04/22/2017, 05/13/2016 HIB VACCINE Aged Out No longer eligi ble based on patient's age to complete this topic HPV VACCINE Aged Out No longer eligi ble based on patient's age to complete this topic MENINGOCOCCAL (Group B) VACCINE SHARED DECISION-MAKING Aged Out No longer eligible based on patient's age to complete this topic MENINGOCOCCAL GROUPS A/C/Y/W VACCINE Aged Out No longer eligible b ased on patient's age to complete this topic Insurance [employer] Care Teams Hockey Scout Relationship Specialty Start Date End Date Lacie Arredondo MD PCP - General Family Medicine 05/13/16
== END 2024-10-25 08:54 | disposition home or self-care (01) ==
LOC: ANHCARD 08:55
PROVIDERS: PCP Family Medicine; Visit Provider Nurse Practitioner Family
DX: R20.2 Paresthesia of skin (principal); Z82.49 Family history of ischemic heart disease and other diseases of the circulatory system
CPT/HCPCS: 93017

== ENCOUNTER 2024-11-29 10:10 | Outpatient (CLI) | payer OTHER, SELFPAY ==
--- NOTE | 2024-11-29 11:00 | NEURO_ITS ---
Impression: # Complains of hand paresthesia. Not on diabetic medicine. ? # No carpal tunnel syndrome ? # Left ulnar neuropathy across the elbow ? # Normal needle/EMG exam Nerve Conduction Studies Anti Sensory Summary Table ?Stim Site NR Peak (ms) P-T Amp (?V) Site1 Site2 Delta-P (ms) Dist (cm) El (m/s) Left Median Anti Sensory (2-3nd Digit) Wrist ? 2.7 68.1 Wrist 2-3nd Digit 2.7 14.0 52 Wrist ? 2.8 57.0 Wrist 2-3nd Digit 2.7 14.0 52 Left Radial Anti Sensory (Base 1st Digit) Wrist ? 2.2 23.3 Wrist Base 1st Digit 2.2 0.0 Left Ulnar Anti Sensory (5th Digit) Wrist ? 2.4 54.3 Wrist 5th Digit 2.4 14.0 58 Motor Summary Table ?Stim Site NR Onset (ms) O-P Amp (mV) Site1 Site2 Delta-0 (ms) Dist (cm) El (m/s) Left Median Motor (Abd Poll Brev) Wrist ? 3.4 2.0 Elbow Wrist 5.4 31.0 57 Elbow ? 8.8 1.3 Left Ulnar Motor (Abd Dig Minimi) Wrist ? 2.5 6.5 A Elbow Wrist 6.4 32.0 50 A Elbow ? 8.9 5.0 B Elbow Wrist 3.3 22.0 67 B Elbow ? 5.8 5.6 F Wave Studies ?NR F-Lat (ms) L-R F-Lat (ms) Left Median (Mrkrs) (Abd Poll Brev) ? 26.98 Left Ulnar (Mrkrs) (Abd Dig Min) ? 29.88 EMG ?Side Muscle Nerve Root Ins Act Fibs Amp Dur Recrt Comment Left 1stDorInt Ulnar C8-T1 Nml Nml Nml Nml Nml Left Ext Indicis Radial (Post Int) C7-8 Nml Nml Nml Nml Nml Left Ext Digitorum Radial (Post Int) C7-8 Nml Nml Nml Nml Nml Left BrachioRad Radial C5-6 Nml Nml Nml Nml Nml Left PronatorTeres Median C6-7 Nml Nml Nml Nml Nml Left Abd Poll Brev Median C8-T1 Nml Nml Nml Nml Nml Left ABD Dig Min Ulnar C8-T1 Nml Nml Nml Nml Nml Left FlexPolLong Median (Ant Int) C7-8 Nml Nml Nml Nml Nml Left Abd Poll Long Radial (Post Int) C7-8 Nml Nml Nml Nml Nml
== END 2024-11-29 10:11 | disposition home or self-care (01) ==
PROVIDERS: PCP Family Medicine; Visit Provider Nurse Practitioner Family
DX: G56.22 Lesion of ulnar nerve, left upper limb (principal)
CPT/HCPCS: 95886; 95909

== ENCOUNTER 2025-01-02 08:35 | Outpatient (CLI) | payer OTHER, SELFPAY ==
--- OUTSIDE RECORDS SUMMARY | 2025-01-02 08:38 | XMS_ITS | Clinical Summary ---
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
--- OUTSIDE RECORDS SUMMARY | 2025-01-02 08:38 | XMS_ITS | Encounter Summary ---
Author Organization [facility] Healthcare Address [address] [place] [address] Care Team Providers Care Glass Enamel Mixer Name Role Phone Harjinder Goff MD Primary Care Provider Encounter Details Date Type Department Care Team (Late st Contact Info) Description 12/26/[address] 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
--- OUTSIDE RECORDS SUMMARY | 2025-01-02 08:38 | XMS_ITS | Clinical Summary ---
Author Organization [facility] Address [address] [facility] Attn: Epic Prelude ADT MALATHI CERRATO [address] Care Team Providers Care Securities Underwriter Name Role Phone Unavailable Primary Care Provider Unavailabl e Medications bisoprolol-hydr oCHLOROthiazide (ZIAC) 10-6.25 mg tablet Take 1 Tablet by mouth daily. 90 Tablet 1 04/21/2022 3:09 PM METAL POLISHER 2 Active calcipotriene (DOVONEX) 0.005 % Cream Apply to psoriasis twice daily on weekends (Wednesday and Wednesday). 60 Gram 3 05/03/2023 3:59 PM METAL POLISHER 3 Active clobetasoL (TEMOVATE) 0.05 % Ointment Apply to psoriasis twice daily on weekdays. (Wednesday through Wednesday) 60 Gram 3 05/03/2023 3:59 PM METAL POLISHER 3 Active calcipotriene (DOVONEX) 0.005 % Cream Apply to psoriasis twice daily on week days 60 Gram 3 10/17/2023 12:19 PM CDT 4 Active clobetasoL (TEMOVATE) 0.05 % Ointment Apply to psoriasis twice daily on weekends as needed 60 Gram 3 10/17/2023 12:19 PM CDT 4 Active bisoprolol-hydr oCHLOROthiazide (ZIAC) 10-6.25 mg tablet Take 1 Tablet by mouth daily. 90 Tablet 1 12/20/2024 5:58 PM CDT 4 Active bisoprolol-hydr oCHLOROthiazide (ZIAC) 10-6.25 mg tablet Take 1 Tablet by mouth daily. 90 Tablet 1 10/21/2024 9:22 AM CDT 4 Active lovastatin (MEVACOR) 20 mg tablet Take 1 Tablet (20 mg) by mouth every evening. 90 Tablet 3 12/20/2024 5:58 PM CDT 4 Active bisoprolol-hydr oCHLOROthiazide (ZIAC) 10-6.25 mg tablet Take 1 Tablet by mouth daily. 90 Tablet 1 5 Active Cholecalciferol , Vitamin D3, 50 mcg (2,000 unit) Capsule Take 1 Capsule by mouth daily. 90 Capsule 2 12/20/2024 5:58 PM CDT 5 Active Encounters Date Type Department Care Team Description 11/07/2024 External Device Data [facility] ABSTRACTION Provider, Abstract [...] Colonography Q 5 years 02/16/2017 INFLUENZA VACCINE (#1) 2025 4, 04/03/2023, 04/05/2022 ZOSTER VACCINE Completed 10/08/2024, 07/22/2024 [facility] [place] [address] RX [employer] Express
--- OUTSIDE RECORDS SUMMARY | 2025-01-02 08:38 | XMS_ITS | Clinical Summary ---
Author Organization [facility] Address [address] [place] [address] Care Team Providers Care Assembler Ping Pong Table Name Role Phone Lacie Arredondo MD Primary Care Provider [phone] Source Comments [facility],non-owned Affiliates and Associated Physician Practices is amultiple site organization consisting of ambulatory clinics and hospital sitesin [place], [place], [place] and [place]. This disclosure is being madepursuant to the Care Everywhere program and may not contain all information available regarding this patient. 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
--- OUTSIDE RECORDS SUMMARY | 2025-01-02 08:38 | XMS_ITS | Referral Summary ---
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
[2025-01-02 13:01] LABS: Hematocrit 42.1 % (42.0-52.0); Hemoglobin 14.0 g/dL (14.0-18.0); Immature Granulocyte Percent A 0.4 % (0-0.5); Lymphocytes Absolute Auto 1.35 K/mm3 (0.9-3.2); Mean Corpuscular HGB Conc 33.3 g/dl (32-36); Mean Corpuscular Hemoglobin 30.4 pg (26-34); Mean Corpuscular Volume 91.3 fl (80-100); Nucleated Red Blood Cells Absolute Auto 0.000 K/mm3 (0.0-0.012); Nucleated Red Blood Cells Perc 0.0 % (0.0-0.2); Platelet Count Result 252 k/mm3 (150-375); Red Blood Count 4.61 M/mm3 (4.6-6.20); White Blood Count 5.6 K/mm3 (4.5-10.0)
[2025-01-02 13:52] LABS: Thyroid Stimulating Hormone Reflex 4.300 uIU/mL (0.465-4.68)
[2025-01-02 16:36] LABS: Alanine Aminotransferase 42 U/L (6-50); Albumin Level 4.6 g/dL (3.5-5.1); Alkaline Phosphatase 55 U/L (38-126); Anion Gap 9 mmol/L (4-12); Aspartate Amino Transferase 48 U/L (17-59); Bilirubin,Total 1.0 mg/dL (0.2-1.3); Blood Urea Nitrogen 17 mg/dL (9-20); Calcium 9.5 mg/dL (8.4-10.2); Carbon Dioxide 25 mmol/L (22-30); Chloride 100 mmol/L (98-107); Cholesterol 190 mg/dL (0-200); Estimated Glomerular Filt Rate > 60; Glucose 100 mg/dL (65-110); HDL Direct 45 mg/dL; Magnesium 2.3 mg/dL (1.6-2.3); Potassium 4.5 mmol/L (3.4-5.0); Sodium 134 mmol/L (137-145); Total Protein 8.0 g/dL (6.3-8.2); Triglycerides 189 mg/dL (<150)
[2025-01-02 17:11] LABS: Prostate Specific Antigen 0.9 ng/mL (< OR = 4.0)
[2025-01-02 17:30] LABS: Vitamin B12 337.0 pg/mL (239-931)
[2025-01-02 20:28] LABS: Free T4 Free Thyroxine Reflex 0.68 ng/dL (0.78-2.19)
[2025-01-02 20:49] LABS: Hemoglobin A1C 5.8 % (<5.7)
== END 2025-01-02 08:36 | disposition home or self-care (01) ==
LOC: ANHGOSHLAB 08:36
PROVIDERS: PCP Family Medicine; Visit Provider Nurse Practitioner Family
DX: Z00.00 Encounter for general adult medical examination without abnormal findings (principal); R73.9 Hyperglycemia, unspecified; I10 Essential (primary) hypertension; E78.5 Hyperlipidemia, unspecified; E55.9 Vitamin D deficiency, unspecified
CPT/HCPCS: 36415; 80053; 80061; 82306; 82607; 83036; 83735; 84153; 84439; 84443; 85025; G0103

== ENCOUNTER 2025-01-25 05:46 | Day surgery (SDC) | payer OTHER, SELFPAY ==
[2025-01-05 11:41] VITALS: BMI 38.2
--- OUTSIDE RECORDS SUMMARY | 2025-01-25 06:03 | XMS_ITS | Clinical Summary ---
Author Organization [facility] Address [address] [place] [phone] Care Team Providers Care Almond Paste Mixer Name Role Phone Harjinder Goff MD [...] Plan of Treatment Not on file Insurance [employer] OPEN ACCESS [employer] OPEN ACCESS [employer] OPEN ACCESS Care Teams Almond Paste Mixer Relationship Specialty Start Date End Date Harjinder Goff MD PCP - General Family Practice 08/13/20
--- OUTSIDE RECORDS SUMMARY | 2025-01-25 06:03 | XMS_ITS | Clinical Summary ---
Author Organization [facility] Address [address] [facility] [place] [address] Care Team Providers Care Gyroscope Repairer Name Role Phone Lacie Arredondo MD Primary Care Provider [phone] Source Comments [facility],non-owned Affiliates and Associated Physician Practices is amultiple site organization consisting of ambulatory clinics and hospital sitesin [place], [place], [place] and [place]. This disclosure is being madepursuant to the Care Everywhere program and may not contain all information available regarding this patient. 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
--- OUTSIDE RECORDS SUMMARY | 2025-01-25 06:03 | XMS_ITS | Encounter Summary ---
Author Organization [facility] Healthcare Address [address] [place] [address] Care Team Providers Care Social Work Faculty Member Name Role Phone Harjinder Goff MD Primary Care Provider Encounter Details Date Type Department Care Team (Late st Contact Info) Description 12/26/2020 Telephone 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
[2025-01-25 06:12] VITALS: BP 123/79; PULSE 51; RESP 18; TEMP 36.3; O2SAT 98
[2025-01-25] MEDS: ACETAMINOPHEN 500 MG TABLET 1000 MG PO (06:16)
[2025-01-25] MEDS: LACTATED RINGERS 1,000 ML 30 ML IV CONT (06:23)
--- NOTE | 2025-01-25 06:55 | WPDHPUPDATE1 ---
History and Physical Update Update Date/Time: 01/25/25 06:55 Patient seen and examined in pre-operative holding area. No interval change in medical history or symptoms. Patient recalls previous discussion of benefits and alternatives to procedure. Continues to desire to proceed with left endoscopic possible open carpal tunnel release and left cubital tunnel release . Reviewed procedure, post-op expectations and risks including but not limited to bleeding, infection, injury to tendon/nerve/vessel, decreased hand function, stiffness, RSD, no change or worsening of symptoms. I discussed the possible use of assistants and their participation in the case. Patient stated understanding and signed the consent form wishing to proceed.
--- NOTE | 2025-01-25 06:55 | W.PM.PROC2 ---
Procedure Note - Detailed Date of Procedure 01/25/25 Pre-op Diagnosis Left Carpal and Cubital Tunnel Syndrome Post-op Diagnosis Same Procedure Performed left ectr and CuTR Surgeon Asher Macias MD Draw String Knotter frederick blackwell pa-c Anesthesia MAC Description of Procedure INFORMED CONSENT: The patient was seen and examined and marked in the pre-op area.? The patient signed the consent form. PROCEDURE IN DETAIL:The patient taken back to OR on the stretcher in supine position. Time out performed with anesthesia, surgeon and staff agreeing on patient's name site and surgery to be performed SCDs were placed on the lower extremities and inflated. A tourniquet was placed on {left} upper extremity and antibiotics given IV After anesthesia administered sedation I injected {10}cc 1%lido with epi and 0.5% marcaine plain at the operative sites The?{left upper extremity}?was prepped and draped in sterile fashion the??{left upper extremity} was? exsanguinated with Esmarch bandage and tourniquet inflated to 250mmHg I made a transverse incision in the {left} volar distal wrist crease through skin and dermis with 15 blade scalpel.? Littler scissors spread down to antebrachial fascia. A small incision was made in antebrachial fascia allowing access to Carpal tunnel. I proceeded with sequential dilation staying in line with the ring finger and hugging the hook of the hamate.? I then used the synovial elevator to free any adhesions from the underside of the transverse carpal ligament. Next I was able to insert the Microaire endoscopic carpal tunnel device with direct visualization of the transverse fibers on the monitor and proceeded with complete segmental retrograde release of the ligament in its entirety.? I irrigated with normal saline and closed with 4-0 monocryl for dermis and subcuticular closure. I next proceeded with making a longitudinal incision between two heads for flexor carpi ulnaris at end of {left} cubital tunnel with 15 blade scalpel.? Littler scissors were used to spread down to FCU fascia.? An incision was made in FCU fascia and ulnar nerve identified exiting cubital tunnel.? I proceeded with complete retrograde release of the cubital tunnel including 7cm proximal for the intermuscular septum.? The nerve appeared healthy with visible vaso nervorum.? There was no subluxation on full elbow range of motion. ? I irrigated with normal saline and closure with 4-0 monocryl for dermis and subcuticular. The incisions were covered with Dermabond then 4x4s, александр, and a posterior elbow and volar wrist splint for patient safety, security and comfort and secured with brent bandages after the tourniquet was let down noting the hand was warm and well perfused.? Patient awaken from anesthesia and transferred to recovery in stable condition Complications - none EBL- 1cc Disposition - home in stable condition freedrick blackwell pa-c was essential for positioning, retraction, closure and dressing placement [facility] Billing Surgery - Charge Forward: Surgery Billing ([id number] same for frederick adding )
--- NOTE | 2025-01-25 07:09 | WPDANESEPPF ---
Anes - Initial Pre Proc Eval Procedure: Operation Date: 01/25/25 07:30 Proposed Procedures p Left Endoscopic Carpal Tunnel Release, Possible Open Carpal Tunnel Release - Asher Macias MD s Left Cubital Tunnel Release - Asher Macias MD Date/Time: 01/25/25 07:09 Surgeon: Asher Macias MD Pre Op Diagnosis: Left Carpal and Cubital Tunnel Syndrome Patient Data Age: 54 Gender: M Height: 1.8 m Weight: 116.7 kg Last Vital Signs Temp 97.4 F L 01/25/25 06:12 Pulse 51 L 01/25/25 06:12 Resp 18 01/25/25 06:12 BP 123/79 01/25/25 06:12 Pulse Ox 98 01/25/25 06:12 O2 Del Method Room Air 01/25/25 06:12 Allergies Allergy/AdvReac Type Severity Reaction Status Date / Time codeine Allergy Unknown Rash Verified 01/25/25 06:11 Home Medications ?Medication ?Instructions ?Recorded ?Confirmed ?Type sildenafil 100 mg tablet (Viagra) 100 mg PO DAILY PRN sexual 04/19/20 01/25/25 Rx activity #30 tabs lovastatin 20 mg tablet 20 mg PO QPM #90 tabs 06/01/24 01/25/25 Rx cholecalciferol (vitamin D3) 50 50 mcg PO DAILY #90 caps 11/13/24 01/25/25 Rx mcg (2,000 unit) capsule bisoprolol 10 1 tablet PO DAILY 01/02/25 01/25/25 History mg-hydrochlorothiazide 6.25 mg tablet calcipotriene 0.005 % topical cream 1 applic topical PRN PRN psoriasis 01/02/25 01/25/25 History [id number]-[id number] 150 mcg-vit K1 1 tablet PO DAILY 01/02/25 01/25/25 History 30 mcg-lycop 300 mcg-lutein tablet (Centrum Minis Men 50 Plus) Patient hx anesthesia problems: none Family hx anesthesia problems: post op nausea/vomiting Results Review: All pre-operative results and documents have been reviewed as part of the pre-operative evaluation. [facility] Past Medical History Medical History Arthralgia Colon cancer screening Hypertension Rectal mass Hyperlipidemia, acquired Surgical History Surgical History S/P repair of hydrocele Family History Family History Mother Family history of malignant neoplasm of breast in first degree relative, Onset Age: 72 Father Family history of heart disease in male family member before age 55, Onset Age: 52 Other Hypertension Social History Social History Social History: Robin is , he has 3 teenagers living at home. 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 Caffeine- coffee Smoking packs per day: 1 Smoking cigarettes per day: 20.0 Years smoked: 4 Smoking pack-years: 4.00 Smoking status: Former smoker Smoking end date: 06/07/96 Alcohol intake: current Drinks per week: 12 Substance use: never Substance use type: does not use Do You Feel Safe in your Home?: Yes Lack of Transportation: No Lack of Food: Never True Current Housing: I Have Housing Concerned About Future Housing: No Difficulty Paying Gas/Electric Bills: No Difficulty Paying for Meds: No Currently Unemployed: No Education: Bachelor's Degree Difficulty w/ Childcare or Family Care: No Living arrangements: with family Additional living arrangements comments: and children Occupation/Education: occupation Gender identity (if verbalized by the patient): Male Sexual Orientation (if Verbalized by the Patient): Straight or Heterosexual Spiritual care concerns: No Agree to blood products: Yes Anes - Eval Final PreProcedure Day of Procedure 01/25/25 07:09 Heart: regular rate and rhythm Lungs: clear to auscultation Airway: Mallampati scale class III Neurological: alert and oriented Last oral intake: >/= 8 hours ASA classification: II Anesthetic plan: proceed Anesthesia type and monitoring: monitored anesthesia care Results Review: All pre-operative results and documents have been reviewed as part of the pre-operative evaluation. Informed Consent: The patient's anesthetic plan and its attendant risks and benefits were discussed with the patient/family/POA. Questions were solicited and answers provided to the satisfaction of the patient/family/POA.
[2025-01-25] MEDS: BUPivacaine HCL 0.5% 10 ML AMP INFILTRATE (07:27)
[2025-01-25] MEDS: LIDO 1%/EPINEPHRINE 1:100,000 20 ML VIAL 5 ML INFILTRATE (07:28)
--- NOTE | 2025-01-25 07:33 | WPDANESPN ---
Anes - Prog Note Post-Op Date/Time: 01/25/25 07:33 Vital Signs: Last Vital Signs Temp 97.4 F L 01/25/25 06:12 Pulse 51 L 01/25/25 06:12 Resp 18 01/25/25 06:12 BP 123/79 01/25/25 06:12 Pulse Ox 98 01/25/25 06:12 O2 Del Method Room Air 01/25/25 06:12 Pain Score (VAS): no Patient Feedback: Patient satisfied with anesthetic care.
[2025-01-25 07:52] VITALS: BP 106/65; PULSE 53; RESP 16; O2SAT 94
[2025-01-25 08:10] VITALS: BP 111/64; PULSE 52; RESP 18; O2SAT 96
[2025-01-25 08:30] VITALS: BP 96/64; PULSE 50; RESP 16; O2SAT 96
== END 2025-01-25 08:43 | disposition home or self-care (01) ==
PROVIDERS: PCP Family Medicine; Visit Provider Plastic Surgery
PROC: 01N54ZZ Release Median Nerve, Percutaneous Endoscopic Approach (ICD-10-PCS; CPT 29848; principal; 2025-01-25 07:30)
PROC: (CPT 64718; 2025-01-25 07:30)
DX: G56.02 Carpal tunnel syndrome, left upper limb (principal); G56.22 Lesion of ulnar nerve, left upper limb
CPT/HCPCS: 29848; 64718

== ENCOUNTER 2025-04-11 09:01 | Outpatient (CLI) | payer OTHER, SELFPAY ==
--- OUTSIDE RECORDS SUMMARY | 2025-04-11 09:35 | XMS_ITS | Encounter Summary ---
Author Organization [facility] Healthcare Address [address] [place] [address] Care Team Providers Care Cooky Machine Operator Name Role Phone Harjinder Goff MD Primary Care Provider Encounter Details Date Type Department Care Team (Late st Contact Info) Description 12/26/2020 Telephone [facility] Radiology [address] [place] [address] Bulmaro Govea MD [address] [facility] [address] [address] Social History Tobacco Use Types Packs/Day Years Used Date Smoking Tobacco: Former Cigarettes 0.5 2.5 0 12/1993 - 1996 Smokeless Tobacco: Never Sex and Gender Information Value Date Recorded Sex Assigned at Not on file 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
--- OUTSIDE RECORDS SUMMARY | 2025-04-11 09:35 | XMS_ITS | Clinical Summary ---
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
--- OUTSIDE RECORDS SUMMARY | 2025-04-11 09:35 | XMS_ITS | Clinical Summary ---
Author Organization [facility] Address [address] [place] [address] Care Team Providers Care Shop Mechanic Name Role Phone Lacie Arredondo MD Primary Care Provider [phone] Source Comments [facility],non-owned Affiliates and Associated Physician Practices is amultiple site organization consisting of ambulatory clinics and hospital sitesin [place], [place], [place] and [place]. This disclosure is being madepursuant to the Care Everywhere program and may not contain all information available regarding this patient. 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
--- OUTSIDE RECORDS SUMMARY | 2025-04-11 09:35 | XMS_ITS | Clinical Summary ---
Author Organization [facility] Address [address] Attn: Epic Prelude ADT MALATHI CERRATO [id number] Care Team Providers Care Sanitation Worker Cleaning Machinery Name Role Phone Unavailable Primary Care Provider Unavailabl e Medications bisoprolol-hydr oCHLOROthiazide (ZIAC) 10-6.25 mg tablet Take 1 Tablet by mouth daily. 90 Tablet 1 04/21/2022 3:09 PM PROJ MGR 2 Active calcipotriene (DOVONEX) 0.005 % Cream Apply to psoriasis twice daily on weekends (Wednesday and Wednesday). 60 Gram 3 05/03/2023 3:59 PM PROJ MGR 3 Active clobetasoL (TEMOVATE) 0.05 % Ointment Apply to psoriasis twice daily on weekdays. (Wednesday through Wednesday) 60 Gram 3 05/03/2023 3:59 PM PROJ MGR 3 Active calcipotriene (DOVONEX) 0.005 % Cream Apply to psoriasis twice daily on week days 60 Gram 3 10/17/2023 12:19 PM CDT 4 Active clobetasoL (TEMOVATE) 0.05 % Ointment Apply to psoriasis twice daily on weekends as needed 60 Gram 3 10/17/2023 12:19 PM CDT 4 Active bisoprolol-hydr oCHLOROthiazide (ZIAC) 10-6.25 mg tablet Take 1 Tablet by mouth daily. 90 Tablet 1 03/23/2025 10:42 AM CDT 4 Active bisoprolol-hydr oCHLOROthiazide (ZIAC) 10-6.25 mg tablet Take 1 Tablet by mouth daily. 90 Tablet 1 10/21/2024 9:22 AM CDT 4 Active lovastatin (MEVACOR) 20 mg tablet Take 1 Tablet (20 mg) by mouth every evening. 90 Tablet 3 03/23/2025 10:42 AM CDT 4 Active bisoprolol-hydr oCHLOROthiazide (ZIAC) 10-6.25 mg tablet Take 1 Tablet by mouth daily. 90 Tablet 1 5 Active Cholecalciferol , Vitamin D3, 50 mcg (2,000 unit) Capsule Take 1 Capsule by mouth daily. 90 Capsule 2 03/23/2025 10:42 AM CDT 5 Active traMADol (ULTRAM) 50 mg tablet Take 1 tablet by mouth every 6 hours as needed for pain 12 Tablet 01/25/2025 9:52 AM CDT 5 Active Encounters Date Type Department Care Team Description 04/04/2025 External Device Data [facility] ABSTRACTION Provider, Abstract 04/03/2025 External Device Data [facility] ABSTRACTION Provider, Abstract 02/06/2025 External Device Data [facility] ABSTRACTION Provider, Abstract [...] 04/05/2022 ZOSTER VACCINE Completed 10/08/2024, 07/22/2024 Insurance [employer]
--- NOTE | 2025-05-07 10:42 | WPDHOMESLEEP ---
Sleep Study - Home Unattended Date of Study: 04/11/25 Ordering Provider: Harjinder Goff MD Interpreting Provider: Brooklyn Ann, DO Home Sleep Study Type: Watch PAT Height: 1.78 m Weight: 120.202 kg Body Mass Index: 38.0 Neck Circumference (inches): 18.25 [place]: 4 Reason for Sleep Study snoring, difficulty staying asleep Sleep History The patient is a 55-year-old male that had a sleep study ordered for evaluation of sleep apnea. The patient admits to snoring loudly and trouble maintaining sleep. He denies having interruptions in breathing while asleep. He denies choking or gasping at night. He does have trouble breathing on his back. He denies morning headaches. He denies having a dry or sore mouth / throat in the morning. He denies nocturnal heartburn. He denies nocturia. He denies having difficulty falling asleep. He does have difficulty returning to sleep if he wakes up throughout the night. He denies any hypnotic or sedative use. He denies feeling anxious about sleep. He does feel tired or sleepy during the day. He does feel tired in the morning. He denies having the urge to fall asleep during the day. He denies feeling drowsy while driving. He denies sleep paralysis, cataplexy and hypnagogic/ hypnopompic hallucinations. He denies clenching or grinding his teeth. He denies kicking or jerking his legs excessively. He denies having a restless feeling in his legs. He goes to bed at 10:00 p.m. on work days and at 11:00 p.m. on his days off. It takes him 15 minutes to fall asleep. He gets 7-1/2 hours of sleep on work days and 6 hours on his days off. His sleep is not restorative on his days off. He denies taking any planned naps. He denies dream enactment behavior. He denies sleep walking. He consumes 3-4 cups of caffeinated beverage per day. He consumes more than 3 alcoholic beverages 1-2 nights per week. He denies tobacco use. He denies exercising on a regular basis. [facility] Past Medical History Medical History Pre-diabetes Male erectile dysfunction, unspecified Vitamin D deficiency Essential (primary) hypertension Family history of [place] (myocardial infarction) Cubital tunnel syndrome on left Hyperlipidemia, acquired Surgical History Surgical History History of medial meniscus repair of left knee (~03/2012) S/P cubital tunnel release (~01/2025) left S/P carpal tunnel release (~01/2025) left S/P repair of hydrocele (~2002) Family History Family History Mother Family history of malignant neoplasm of breast in first degree relative, Onset Age: 72 Father Family history of heart disease in male family member before age 55, Onset Age: 52 Other Hypertension Social History Social History Social History: Robin is , he has 3 teenagers living at home. 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 Caffeine- coffee Smoking packs per day: 1 Smoking cigarettes per day: 20.0 Years smoked: 4 Smoking pack-years: 4.00 Smoking status: Former smoker Smoking end date: 06/07/96 Alcohol intake: current Drinks per week: 12 Substance use: never Substance use type: does not use Lack of Transportation: No Lack of Food: Never True Current Housing: I Have Housing Concerned About Future Housing: No Difficulty Paying Gas/Electric Bills: No Difficulty Paying for Meds: No Currently Unemployed: No Education: Bachelor's Degree Difficulty w/ Childcare or Family Care: No Living arrangements: with family Additional living arrangements comments: and children Occupation/Education: occupation Gender identity (if verbalized by the patient): Male Sexual Orientation (if Verbalized by the Patient): Straight or Heterosexual Spiritual care concerns: No Agree to blood products: Yes Medications Home Medications ?Medication ?Instructions ?Recorded ?Confirmed ?Type sildenafil 100 mg tablet (Viagra) 100 mg PO DAILY PRN sexual 04/19/20 03/19/25 Rx activity #30 tabs lovastatin 20 mg tablet 20 mg PO QPM #90 tabs 06/01/24 03/19/25 Rx cholecalciferol (vitamin D3) 50 50 mcg PO DAILY #90 caps 11/13/24 03/19/25 Rx mcg (2,000 unit) capsule bisoprolol 10 1 tablet PO DAILY 01/02/25 03/19/25 History mg-hydrochlorothiazide 6.25 mg tablet calcipotriene 0.005 % topical cream 1 applic topical PRN PRN psoriasis 01/02/25 03/19/25 History vinnwlmh-kwo-woice 150 mcg-vit K1 1 tablet PO DAILY 01/02/25 03/19/25 History 30 mcg-lycop 300 mcg-lutein tablet (Centrum Minis Men 50 Plus) Sleep Procedure The sleep study was completed using [employer] a technically adequate device with seven channels: peripheral arterial tone, actigraphy, body position, snore, respiratory movement, pulse oximetry, sleep staging, and heart rate. Prior to using the device, the patient received verbal and written instructions for its application and was provided with the help desk phone number for additional telephonic instruction with 24-hour availability of qualified personnel to answer questions. The study was scored using CMS guidelines. Sleep Architecture The total recording time is 8 hrs, 39 min. The total sleep time is 7 hrs, 40 min. Sleep latency is 6 minutes. REM latency is 54 minutes. The patient had 10 episodes of waking. Sleep architecture shows 14.0% deep sleep, 54.0% light sleep, and (as % Total Sleep Time) showed NREM (Light 54.0%; Deep 14.0%), and a 32.0% stage REM. The patient spent 0.0% of total sleep time in the supine position. Sleep efficiency was 88.63. Respiratory Analysis The overall AHI (pAHI 4%:) is 4.7. The overall AHI (pAHI 3%:) is 6.9. The central AHI is 0.0. The AHI was 4.2 in NREM and 12.7 in REM sleep. The AHI was N/A in Supine and 6.9 in Non-supine sleep. Percent of Julio César Chinchilla respirations is 0.0. Oximetry Data The oxygen desaturation index (MARIBEL 4%:) is 3.1. The mean saturation is 94%, and the lowest saturation is 86%. Time spent with saturation < 88% is 1.1 minutes. Snoring Profile Snoring average intensity is 44 dB. The patient snored above 45 decibels for 116.8 minutes, 25.4% of sleep time. Cardiac Profile The average pulse rate is 56 beats per minutes. The lowest pulse rate is 45 bpm. The highest pulse rate reported is 93 bpm. Atrial fibrillation was not detected. Premature beats occur <0.1 per minute. Assessment and Plan Assessment and Plan (1) JAVON (obstructive sleep apnea): Code(s): G47.33 - Obstructive sleep apnea (adult) (pediatric) Status: Acute Assessment and Plan: Per AASM guidelines (pAHI3%), the patient had an overall AHI of 6.9 with desaturation down to 86%. This is consistent with mild sleep apnea. Due to the patient's hypertension, he qualifies for treatment. I recommend that the patient be prescribed AutoPAP 5-15 cm H2O, CPAP mask/filters/tubing and heated humidity. A mandibular advancement device is also an acceptable treatment option. This should be used with all episodes of sleep.? Compliance should be reviewed within 31-90 days of starting therapy for usage greater than 4 hours per night greater than 70% of the nights. The patient should be asked about symptoms such as?excessive daytime sleepiness, quality of sleep, decreased nocturia, increased?mental functioning such as memory, mood, and concentration. Per CMS guidelines (pAHI4%), the patient had an overall AHI of 4.7 with desaturation down to 86%. This is not consistent with sleep-disordered breathing. If the patient's insurance only recognizes CMS guidelines, the patient does not qualify for treatment. I would then recommend that the patient have a split study with the use of a hypnotic to ensure we obtain enough sleep data. Data The data obtained during this sleep study is adequate for interpretation. Certification This sleep study has been reviewed by a board certified sleep medicine physician.
[2025-05-08 13:48] VITALS: BMI 38.0
== END 2025-04-12 12:29 | disposition home or self-care (01) ==
LOC: ANHCSM 09:06
PROVIDERS: PCP Family Medicine; Visit Provider Family Medicine
DX: G47.10 Hypersomnia, unspecified (principal); R40.0 Somnolence; G47.33 Obstructive sleep apnea (adult) (pediatric)
CPT/HCPCS: 95800